=== PATIENT | male | born 1945 | race African-American/Black ===

== ENCOUNTER 2020-01-01 23:51 | Inpatient (IN) | payer MEDICAID, OTHER ==
[~2020-01-01] VITALS: Ht 176.5 cm; Wt 52.2 kg
[2020-01-01 23:51] VITALS: BP 202/93
--- NOTE | 2020-01-01 23:51 | NUR ---
ED Nurse Note: pt presents to ED via EMS arrival RA 70 c/o SOB x 2 days. EMS report that pt was sattinga at 87% on RA, they gave him a breathing treatment, did not help. EMS put him on c-pap and gave him a breathing treatment, he is now satting at 100%. patient placed on gurney. ao4. vss. changed into gown; attached to monitor. safety measures met. rt at bedside.
[2020-01-02] VITALS (7 sets, daily range): BP systolic 154–192; BP diastolic 71–100
[2020-01-02] MEDS ORDERED: Solu-MEDROL 125mg Inj IVP ONE
--- NOTE | 2020-01-02 00:01 | Emergency Room Report ---
History of Present Illness General Chief Complaint: Dyspnea/Respdistress Source: Patient, EMS Present Illness HPI 74-year-old male past history of COPD history of lung cancer presents with shortness of breath, respiratory distress x2 days patient has been taking albuterol which has helped a little bit, no known aggravating factors severity is severe, constant patient was on BiPAP brought in by EMS patient presents for evaluation Allergies: Coded Allergies: No Known Allergies (Unverified , 01/01/20) Patient History Past Medical History: see triage record Social History: Reports: smoking Reviewed Nursing Documentation: PMH: Agreed; PSxH: Agreed Nursing Documentation-PMH Hx Asthma: Yes Hx COPD: Yes Review of Systems All Other Systems: negative except mentioned in HPI Physical Exam Vital Signs Date Time Temp Pulse Resp B/P (MAP) Pulse Ox O2 Delivery O2 Flow Rate FiO2 01/01/20 23:48 97.3 112 20 202/93 (129) 100 Sp02 EP Interpretation: reviewed, normal General Appearance: alert, moderate distress Head: normocephalic, atraumatic Eyes: bilateral eye PERRL, bilateral eye EOMI ENT: uvula midline, moist mucus membranes Neck: supple, thyroid normal, supple/symm/no masses Respiratory: decreased breath sounds, accessory muscle use, rhonchi, wheezing Cardiovascular #1: normal peripheral pulses, no edema, no gallop, no murmur, tachycardia Gastrointestinal: non tender, soft, no guarding, no rebound Musculoskeletal: normal inspection Neurologic: alert, oriented x3 Psychiatric: anxious Skin: no rash, warm/dry Procedures Critical Care Time Critical Care Time Given the critical condition in which the patient arrived, the patient was immediately assessed by myself and the nurse, and cardiac monitoring initiated due to the potential for rapid decompensation of the patient's clinical condition. During the course of the patient's stay, I spent a considerable amount of time at the bedside performing serial re-evaluations of the patient's hemodynamic and clinical status because of the recognized potential threat to life or limb in this condition. I then had a chance to review not only all of the available current laboratory and radiographic studies obtained today, but I also reviewed old records available to me at the time. Additionally, any ancillary information available including agricultural research engineer records were reviewed. Sequential vital signs were obtained. Critical Care time of 36 minutes was performed exclusive of billable procedures. Medical Decision Making Diagnostic Impression: Primary Impression: Respiratory distress Additional Impression: COPD with exacerbation ER Course 74-year-old male presents with acute shortness of breath differential diagnosis includes COPD exacerbation, pneumonia We will start steroids, antibiotics, fluids BiPAP started due to patient being in extremitas Reevaluation 12:45 AM patient is feeling better tachycardia is resolving patient was also given antibiotics for possible healthcare acquired pneumonia Patient to be admitted to stepdown unit Reevaluation 12:57 AM attempted to move patient off BiPAP however patient could not tolerate will restart BiPAP Patient admitted to [facility] Laboratory Tests Test 01/02/20 00:05 01/02/20 00:10 Arterial Blood pH 7.347 (7.350-7.450) Arterial Blood Partial Pressure CO2 41.5 mmHg (35.0-45.0) Arterial Blood Partial Pressure O2 172.4 mmHg (75.0-100.0) H Arterial Blood HCO3 22.2 mmol/L (22.0-26.0) Arterial Blood Oxygen Saturation 98.8 % (95-100) Arterial Blood Base Excess -3.2 (-2-2) L Angel Test Positive White Blood Count 10.5 K/UL (4.8-10.8) Red Blood Count 5.11 M/UL (4.70-6.10) Hemoglobin 14.1 G/DL (14.2-18.0) L Hematocrit 42.9 % (42.0-52.0) Mean Corpuscular Volume 84 FL (80-99) Mean Corpuscular Hemoglobin 27.5 PG (27.0-31.0) Mean Corpuscular Hemoglobin Concent 32.8 G/DL (32.0-36.0) Red Cell Distribution Width 12.7 % (11.6-14.8) Platelet Count 300 K/UL (150-450) Mean Platelet Volume 5.7 FL (6.5-10.1) L Neutrophils (%) (Auto) 55.8 % (45.0-75.0) Lymphocytes (%) (Auto) 28.0 % (20.0-45.0) Monocytes (%) (Auto) 5.8 % (1.0-10.0) Eosinophils (%) (Auto) 9.4 % (0.0-3.0) H Basophils (%) (Auto) 1.0 % (0.0-2.0) Lactic Acid Level 1.30 mmol/L (0.4-2.0) Troponin I 0.000 ng/mL (0.000-0.056) Pro-B-Type Natriuretic Peptide 238 pg/mL (0-125) H Lipase 152 U/L (73-393) EKG Diagnostic Results EKG Time: 00:06 EP Interpretation: Sinus tachycardia, rate 105, QTc 436, no acute ST elevations , right axis de Rhythm Strip Diag. Results Rhythm Strip Time: 00:44 EP Interpretation: yes Rate: 92 Rhythm: NSR, no PVC's, no ectopy Chest X-Ray Diagnostic Results Chest X-Ray Diagnostic Results : Chest X-Ray Ordered: Yes # of Views/Limited/Complete: 1 View Indication: Chest Pain EP Interpretation: Yes Interpretation: no consolidation, no effusion, no pneumothorax, no acute cardiopulmonary disease Impression: No acute disease Electronically Signed by: Juma Chandler MD Last Vital Signs Date Time Temp Pulse Resp B/P (MAP) Pulse Ox O2 Delivery O2 Flow Rate FiO2 01/01/20 23:48 97.3 112 20 202/93 (129) 100 Disposition: ADMITTED INPATIENT Condition: Critical Juma Chandler MD Jan 02, 2020 00:01
--- NOTE | 2020-01-02 00:10 | NUR ---
ED Nurse Note: iv access established. blood collected; sent down to lab.
[2020-01-02] MEDS ORDERED: Vancomycin 1 GM in NS 275 ML IVPB ONE (00:15)
[2020-01-02] MEDS ORDERED: Cefepime HCl 2 GM in D5W 55 ML IVPB ONE (00:15)
[2020-01-02 00:44] LABS: EOSINOPHILS % (AUTO) 9.4 % (0.0-3.0); HEMATOCRIT 42.9 % (42.0-52.0); HEMOGLOBIN 14.1 G/DL (14.2-18.0); MEAN CORPUSCULAR VOLUME 84 FL (80-99); MONOCYTES % (AUTO) 5.8 % (1.0-10.0); NEUTROPHILS % (AUTO) 55.8 % (45.0-75.0); PLATELET COUNT 300 K/UL (150-450); RED BLOOD COUNT 5.11 M/UL (4.70-6.10); RED CELL DISTRIBUTION WIDTH 12.7 % (11.6-14.8); WHITE BLOOD COUNT 10.5 K/UL (4.8-10.8)
[2020-01-02] MEDS ORDERED: Mylanta II UD 30ml ORAL PRN (01:30)
[2020-01-02] MEDS ORDERED: Albuterol/Ipratropium 3ml neb HHN PRN (01:30)
[2020-01-02] MEDS ORDERED: DiphenhydrAMINE 25mg Tab ORAL PRN (01:30)
[2020-01-02] MEDS ORDERED: LORazepam Inj 2mg/ml 1ml IV PRN (01:30)
--- NOTE | 2020-01-02 02:08 | NUR ---
TRANSFER TO FLOOR: Patient transferred to sdu 238-2 as ordered, per albertina viramontes. Report given to isac mendoza. patient stable for transfer. pt tranferred to unit via [facility] with alice chau and rt. belongings and admission packet sent with patient.
--- NOTE | 2020-01-02 02:15 | NUR ---
NURSE NOTES: Received pt from Yolanda Beltran RN of ED. pt transferred via gurney. pt is AO X4, able to make needs known. denies pain at this time. pt placed on BiPAP with settings of 12/6, FiO2: 21%. at this time, pt is exhibiting labored breathing, saturation: 96%. pt placed on vacuum cleaner repairer. vacuum cleaner repairer shows HR between 90s-low 100s. no acute cardiac distress noted. skin assessed and noted to be intact upon assessment. RFA 20 g IV site is patent and intact, asymptomatic. Right upper chest port-a-cath noted. diminished breath sounds and wheezes noted bilaterally upon auscultation. hypoactive bowel sounds heard upon auscultation X4 quadrants. urinal placed at bedside. belongings reviewed with patient, remain at bedside. bed in lowest position and locked, siderails up X3, call light within reach. will continue to monitor.
--- NOTE | 2020-01-02 03:44 | NUR ---
NURSE NOTES: left message for Dr. Ely regarding clarification of BiPAP order, regarding pt's SBP between 160-180, and pt's desire to be DNR/DNI. awaiting call back. pt is in stable condition at this time. pt appears to be tolerating current BiPAP settings well. will continue to monitor.
--- NOTE | 2020-01-02 03:50 | NUR ---
NURSE NOTES: received call back from Dr. Ely. will carry out new orders.
[2020-01-02] MEDS: Solu-MEDROL 40mg Inj IVP SCH ×4 (05:35→23:09)
--- NOTE | 2020-01-02 07:35 | NUR ---
NURSE NOTES: Received report from Eric Jaramillo RN. Patient eating breakfast in bed, oriented x 4, able to make needs known and follow commands. On room air, no s/s of respiratory distress noted. Right forearm 20g IV site patent and asymptomatic. Noted with right upper chest port-a-cath. Bed locked in lowest position with side rails up x 3. All needs attended to. Call light within reach. Will continue to monitor.
--- NOTE | 2020-01-02 07:52 | NUR ---
HAND-OFF: Report given to KRISTEN Healy. pt is in stable condition.
--- NOTE | 2020-01-02 08:40 | NUR ---
NURSE NOTES: Dr. Raisa Pulliam at bedside, made aware of patient's desire for code to be DNR/DNI. Also notified MD of elevated BP, no BP medications available.
[2020-01-02] MEDS: Docusate 100mg cap ORAL SCH ×2 (09:00→20:32)
[2020-01-02] MEDS: Azithromycin 250mg tab ORAL SCH (09:08)
[2020-01-02] MEDS: Heparin 5000 units/ml inj SUBQ SCH ×2 (09:09→20:34)
--- NOTE | 2020-01-02 09:52 | Consultation ---
History of Present Illness General Date patient seen: Jan 02, 2020 Time patient seen: 09:45 Chief Complaint: Dyspnea/Respdistress Referring physician: Dr. Ely Reason for Consultation: COPD exacerbation Present Illness HPI 74 y/o male w/ hx asthma w/ COPD, lung cancer on immunotherapy (unkown stage, possibly stage I with nonsurgical candidacy), head/neck cancer s/p resection, ? small intestinal cancer s/p resection, previous hx heavy tobacco use with one day of shortness of breath and wheezing. Chronic cough but a little worse. States this happens frequently. No fever, chills, rhinorrhea, body aches. Using his inhalers. NO longer smoking. Given abx in ED along with steroids and also placed on BiPAP with ABG showing a mild metabolic acidosis. Feels better after using BiPAP, currently tolerating room air. Allergies: Coded Allergies: No Known Allergies (Unverified , 01/01/20) Medication History Unable to Obtain Active Prescriptions or Reported Meds Patient History History Provided By: Patient, Medical Record Healthcare decision maker SELF Resuscitation status Full Code Advanced Directive on File No Review of Systems Constitutional: Reports: no symptoms Eye: Reports: no symptoms ENT: Reports: no symptoms Respiratory: Reports: cough, shortness of breath, wheezing Cardiovascular: Reports: no symptoms Gastrointestinal: Reports: no symptoms Genitourinary: Reports: no symptoms Musculoskeletal: Reports: no symptoms Psychiatric: Reports: no symptoms Neurological: Reports: no symptoms Endocrine: Reports: no symptoms Hematologic/Lymphatic: Reports: no symptoms Physical Exam General Appearance: WD/WN, no apparent distress HEENT: pharynx normal, no JVD Neck: non-tender, normal alignment, supple, normal inspection Respiratory/Chest: expiratory wheezing Cardiovascular/Chest: normal rate, regular rhythm Abdomen: normal bowel sounds, non tender, soft Extremities: no edema Neurologic: ship pilot dispatcher II-XII grossly normal Last 24 Hour Vital Signs Date Time Temp Pulse Resp B/P (MAP) Pulse Ox O2 Delivery O2 Flow Rate FiO2 01/02/20 09:11 169/83 01/02/20 09:04 98 01/02/20 08:00 98.2 107 19 171/81 (111) 97 01/02/20 06:51 90 19 99 21 01/02/20 05:12 91 17 99 21 01/02/20 04:32 166/83 01/02/20 04:00 Bi-pap 01/02/20 04:00 97.5 91 21 162/81 (108) 98 01/02/20 04:00 92 01/02/20 04:00 21 01/02/20 03:53 89 21 97 Bi-Pap 21 01/02/20 03:30 89 21 98 21 01/02/20 03:08 21 01/02/20 02:22 Bi-Pap 01/02/20 02:15 97.7 92 24 154/76 (102) 96 01/02/20 02:12 98 01/02/20 01:50 97.3 94 24 167/100 99 Bi-pap 21 01/02/20 01:30 97.3 94 24 167/100 99 Bi-pap 21 01/02/20 01:09 91 24 99 21 01/02/20 00:14 90 38 95 40 01/01/20 23:51 97.3 105 20 100 Bi-pap 01/01/20 23:51 112 20 Bi-pap 01/01/20 23:48 97.3 112 20 (129) 100 Intake and Output 01/01/20 01/02/20 18:59 06:59 Output Total 550 ml Balance -550 ml Output Urine Total 550 ml Laboratory Tests Test 01/02/20 00:05 01/02/20 00:10 Arterial Blood pH 7.347 (7.350-7.450) Arterial Blood Partial Pressure CO2 41.5 mmHg (35.0-45.0) Arterial Blood Partial Pressure O2 172.4 mmHg (75.0-100.0) H Arterial Blood HCO3 22.2 mmol/L (22.0-26.0) Arterial Blood Oxygen Saturation 98.8 % (95-100) Arterial Blood Base Excess -3.2 (-2-2) L Angel Test Positive White Blood Count 10.5 K/UL (4.8-10.8) Red Blood Count 5.11 M/UL (4.70-6.10) Hemoglobin 14.1 G/DL (14.2-18.0) L Hematocrit 42.9 % (42.0-52.0) Mean Corpuscular Volume 84 FL (80-99) Mean Corpuscular Hemoglobin 27.5 PG (27.0-31.0) Mean Corpuscular Hemoglobin Concent 32.8 G/DL (32.0-36.0) Red Cell Distribution Width 12.7 % (11.6-14.8) Platelet Count 300 K/UL (150-450) Mean Platelet Volume 5.7 FL (6.5-10.1) L Neutrophils (%) (Auto) 55.8 % (45.0-75.0) Lymphocytes (%) (Auto) 28.0 % (20.0-45.0) Monocytes (%) (Auto) 5.8 % (1.0-10.0) Eosinophils (%) (Auto) 9.4 % (0.0-3.0) H Basophils (%) (Auto) 1.0 % (0.0-2.0) Lactic Acid Level 1.30 mmol/L (0.4-2.0) Troponin I 0.000 ng/mL (0.000-0.056) Pro-B-Type Natriuretic Peptide 238 pg/mL (0-125) H Lipase 152 U/L (73-393) Microbiology Date/Time Source Procedure Growth Status 01/02/20 03:00 Nasal Nares - Final Complete 01/02/20 03:00 Nasal Nares - Final Complete Height (Feet): 5 Height (Inches): 9.50 Weight (Pounds): 119 Medications Current Medications Medications (Trade) Dose Ordered Sig/Tyron Route PRN Reason Start Time Stop Time Status Last Admin Dose Admin Acetaminophen (Tylenol) 650 mg Q4H PRN ORAL Mild Pain (Pain Scale 1-3) 01/02/20 01:30 02/01/20 01:29 Al Hydroxide/Mg Hydroxide (Mylanta II) 30 ml Q6H PRN ORAL dyspepsia 01/02/20 01:30 02/01/20 01:29 Albuterol/ Ipratropium (Albuterol/ Ipratropium) 3 ml Q4H PRN HHN Shortness of Breath 01/02/20 01:30 01/07/20 01:29 Azithromycin (Zithromax) 250 mg DAILY ORAL 01/02/20 09:00 01/09/20 08:59 01/02/20 09:08 Chlorhexidine Gluconate (Mackenzie-Hex 2%) 1 applic DAILY@1999 TOPIC 01/02/20 20:00 02/01/20 19:59 Dextrose (Dextrose 50%) 25 ml Q30M PRN IV Hypoglycemia 01/02/20 01:30 02/01/20 01:29 Dextrose (Dextrose 50%) 50 ml Q30M PRN IV Hypoglycemia 01/02/20 01:30 02/01/20 01:29 Diphenhydramine HCl (Benadryl) 25 mg Q6H PRN ORAL Itching/Pruritis 01/02/20 01:30 02/01/20 01:29 Docusate Sodium (Colace) 100 mg EVERY 12 HOURS ORAL 01/02/20 09:00 02/01/20 08:59 Heparin Sodium (Porcine) (Heparin 5000 units/ml) 5,000 units EVERY 12 HOURS SUBQ 01/02/20 09:00 02/01/20 08:59 01/02/20 09:09 Hydralazine HCl (Apresoline) 10 mg Q4H PRN IV For High Blood Pressure 01/02/20 08:45 02/01/20 08:44 01/02/20 09:11 Lorazepam (Ativan 2mg/ml 1ml) 0.5 mg Q4H PRN IV For Anxiety 01/02/20 01:30 01/09/20 01:29 Methylprednisolone Sodium Succinate (Solu-MEDROL) 40 mg EVERY 6 HOURS IVP 01/02/20 06:00 02/01/20 05:59 01/02/20 05:35 Ondansetron HCl (Zofran) 4 mg Q6H PRN IVP Nausea & Vomiting 01/02/20 01:30 02/01/20 01:29 Pantoprazole (Protonix) 40 mg DAILY ORAL 01/02/20 09:00 02/01/20 08:59 01/02/20 09:08 Assessment/Plan Assessment/Plan: Problem List: * Acute exacerbation of asthma w/ COPD * Query viral etiology * Lung cancer on immunotherapy, unclear stage * hx ENT cancer * 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
--- NOTE | 2020-01-02 10:09 | NUR ---
RD ASSESSMENT & RECOMMENDATIONS SEE CARE ACTIVITY FOR COMPLETE ASSESSMENT DAILY ESTIMATED NEEDS: Needs based on underweight, cancer 54kg 30-40 kcals/kg 2428-8909 total kcals 1-2 g protein/kg 54-108 g total protein 25-30 mL/kg 8765-5169 total fluid mLs NUTRITION DIAGNOSIS: Increased kcal and pro needs r/t cancer and underweight status as evidenced by pt w/ lung cancer s/p chemo, pt is 72% of [place] Body Weight w/ generalized moderate to severe wasting. CURRENT DIET: Regular PO DIET RECOMMENDATIONS: Maintain Regular diet / add snacks in b/w all meals ADDITIONAL RECOMMENDATIONS: 1) rec CHEM panel to evaluate lytes, renal labs, BG etc.... 2) Snacks in b/w all meals -> High kcal supplement when chem panel is available 3) Obtain a standing weight / pt reports wt loss, currently underweight
--- NOTE | 2020-01-02 12:13 | Diagnostic Imaging Report ---
Indication: Dyspnea Comparison: 11/27/2010 A single view chest radiograph was obtained. Findings: There is a right chest port in good position. Ill-defined infiltrate right upper lobe noted. Abnormal density in the suprahilar region could be a mass. Correlate with the given workup and previous studies if available. Elevated right hemidiaphragm noted. Heart size is normal. IMPRESSION: Chest port in good position. Right upper lobe infiltrate versus mass.
--- NOTE | 2020-01-02 12:33 | NUR ---
NURSE NOTES: Dr. Pulliam notified of patient's elevated BP. Per patient, he takes nifedipine at home 60 mg q AM and 30 mg q HS. Order received to add nifedipine to inpatient meds.
--- NOTE | 2020-01-02 13:21 | History and Physical ---
History of Present Illness General Date patient seen: Jan 02, 2020 Time patient seen: 11:00 Reason for Hospitalization: Dyspnea/Respdistress Present Illness HPI 74 y/o male w/ hx asthma w/ COPD, lung cancer on immunotherapy (unkown stage, possibly stage I with nonsurgical candidacy), presenting with 1 day of SOB, wheezing. He reports having frequent episodes like this once (4th since last August). Has been coughing but it's chronic. denies any fever, chills, sick contacts. Allergies: Coded Allergies: No Known Allergies (Unverified , 01/01/20) Medication History Unable to Obtain Active Prescriptions or Reported Meds Patient History Healthcare decision maker SELF Resuscitation status Full Code Advanced Directive on File No Review of Systems Constitutional: Denies: no symptoms, see HPI, chills, sweats, fever, malaise, weakness, other Eye: Denies: no symptoms, see HPI, eye pain, blurred vision, tearing, double vision, nose pain, nose congestion, acuity changes, discharge, other ENT: Denies: no symptoms, see HPI, ear pain, ear discharge, nose pain, nose congestion, throat pain, throat swelling, mouth pain, hearing loss, nasal discharge, other Respiratory: Reports: cough, shortness of breath, wheezing Cardiovascular: Denies: no symptoms, see HPI, chest pain, edema, palpitations, syncope, PND, other Gastrointestinal: Denies: no symptoms, see HPI, abdominal pain, constipation, diarrhea, nausea, vomiting, melena, hematemesis, other Genitourinary: Denies: no symptoms, see HPI, discharge, dysuria, frequency, hematuria, pain, retention, incontinence, urgency, vag bleed/dc, other Musculoskeletal: Denies: no symptoms, see HPI, back pain, gout, joint pain, joint swelling, muscle pain, muscle stiffness, other Skin: Denies: no symptoms, see HPI, rash, change in color, change in hair/nails , dryness, lesions, other Psychiatric: Denies: no symptoms, see HPI, prior hx, anxiety, depressed feelings, emotional problems, SI, HI, hallucinations, other Neurological: Denies: no symptoms, see HPI, headache, numbness, paresthesia, seizure, tingling, tremors, focal weakness, syncope, dizziness, other Endocrine: Denies: no symptoms, see HPI, excessive sweating, flushing, intolerance to temperature, increased thirst, increased urine, unexplained weight loss, other All Other Systems: negative except mentioned in HPI Physical Exam General Appearance: no apparent distress, alert HEENT: normocephalic, atraumatic Neck: supple Respiratory/Chest: no respiratory distress, expiratory wheezing, inspiratory wheezing Cardiovascular/Chest: normal rate, regular rhythm Abdomen: non tender, soft Extremities: no edema Neurologic: alert, oriented x 3 Last 24 Hour Vital Signs Date Time Temp Pulse Resp B/P (MAP) Pulse Ox O2 Delivery O2 Flow Rate FiO2 01/02/20 12:38 96 184/91 01/02/20 12:00 98.6 101 20 192/83 (119) 99 01/02/20 12:00 Room Air 01/02/20 09:11 169/83 01/02/20 09:04 98 01/02/20 08:00 Room Air 01/02/20 08:00 98.2 107 19 171/81 (111) 97 01/02/20 07:46 109 01/02/20 06:51 90 19 99 21 01/02/20 05:12 91 17 99 21 01/02/20 04:32 166/83 01/02/20 04:00 Bi-pap 01/02/20 04:00 97.5 91 21 162/81 (108) 98 01/02/20 04:00 92 01/02/20 04:00 21 01/02/20 03:53 89 21 97 Bi-Pap 21 01/02/20 03:30 89 21 98 21 01/02/20 03:08 21 01/02/20 02:22 Bi-Pap 01/02/20 02:15 97.7 92 24 154/76 (102) 96 01/02/20 02:12 98 01/02/20 01:50 97.3 94 24 167/100 99 Bi-pap 21 01/02/20 01:30 97.3 94 24 167/100 99 Bi-pap 21 01/02/20 01:09 91 24 99 21 01/02/20 00:14 90 38 95 40 01/01/20 23:51 97.3 105 20 100 Bi-pap 01/01/20 23:51 112 20 Bi-pap 01/01/20 23:48 97.3 112 20 202/93 (129) 100 Intake and Output 01/01/20 01/02/20 19:00 07:00 Output Total 550 ml Balance -550 ml Output Urine Total 550 ml Laboratory Tests Test 01/02/20 00:05 01/02/20 00:10 Arterial Blood pH 7.347 (7.350-7.450) Arterial Blood Partial Pressure CO2 41.5 mmHg (35.0-45.0) Arterial Blood Partial Pressure O2 172.4 mmHg (75.0-100.0) H Arterial Blood HCO3 22.2 mmol/L (22.0-26.0) Arterial Blood Oxygen Saturation 98.8 % (95-100) Arterial Blood Base Excess -3.2 (-2-2) L Angel Test Positive White Blood Count 10.5 K/UL (4.8-10.8) Red Blood Count 5.11 M/UL (4.70-6.10) Hemoglobin 14.1 G/DL (14.2-18.0) L Hematocrit 42.9 % (42.0-52.0) Mean Corpuscular Volume 84 FL (80-99) Mean Corpuscular Hemoglobin 27.5 PG (27.0-31.0) Mean Corpuscular Hemoglobin Concent 32.8 G/DL (32.0-36.0) Red Cell Distribution Width 12.7 % (11.6-14.8) Platelet Count 300 K/UL (150-450) Mean Platelet Volume 5.7 FL (6.5-10.1) L Neutrophils (%) (Auto) 55.8 % (45.0-75.0) Lymphocytes (%) (Auto) 28.0 % (20.0-45.0) Monocytes (%) (Auto) 5.8 % (1.0-10.0) Eosinophils (%) (Auto) 9.4 % (0.0-3.0) H Basophils (%) (Auto) 1.0 % (0.0-2.0) Lactic Acid Level 1.30 mmol/L (0.4-2.0) Troponin I 0.000 ng/mL (0.000-0.056) Pro-B-Type Natriuretic Peptide 238 pg/mL (0-125) H Lipase 152 U/L (73-393) Microbiology Date/Time Source Procedure Growth Status 01/02/20 03:00 Nasal Nares - Final Complete 01/02/20 03:00 Nasal Nares - Final Complete Height (Feet): 5 Height (Inches): 9.50 Weight (Pounds): 119 Medications Current Medications Medications (Trade) Dose Ordered Sig/Tyron Route PRN Reason Start Time Stop Time Status Last Admin Dose Admin Acetaminophen (Tylenol) 650 mg Q4H PRN ORAL Mild Pain (Pain Scale 1-3) 01/02/20 01:30 02/01/20 01:29 Al Hydroxide/Mg Hydroxide (Mylanta II) 30 ml Q6H PRN ORAL dyspepsia 01/02/20 01:30 02/01/20 01:29 Albuterol/ Ipratropium (Albuterol/ Ipratropium) 3 ml Q4H PRN HHN Shortness of Breath 01/02/20 01:30 01/07/20 01:29 Azithromycin (Zithromax) 250 mg DAILY ORAL 01/02/20 09:00 01/09/20 08:59 01/02/20 09:08 Chlorhexidine Gluconate (Mackenzie-Hex 2%) 1 applic DAILY@1999 TOPIC 01/02/20 20:00 02/01/20 19:59 Dextrose (Dextrose 50%) 25 ml Q30M PRN IV Hypoglycemia 01/02/20 01:30 02/01/20 01:29 Dextrose (Dextrose 50%) 50 ml Q30M PRN IV Hypoglycemia 01/02/20 01:30 02/01/20 01:29 Diphenhydramine HCl (Benadryl) 25 mg Q6H PRN ORAL Itching/Pruritis 01/02/20 01:30 02/01/20 01:29 Docusate Sodium (Colace) 100 mg EVERY 12 HOURS ORAL 01/02/20 09:00 02/01/20 08:59 Heparin Sodium (Porcine) (Heparin 5000 units/ml) 5,000 units EVERY 12 HOURS SUBQ 01/02/20 09:00 02/01/20 08:59 01/02/20 09:09 Hydralazine HCl (Apresoline) 10 mg Q4H PRN IV For High Blood Pressure 01/02/20 08:45 02/01/20 08:44 01/02/20 09:11 Lorazepam (Ativan 2mg/ml 1ml) 0.5 mg Q4H PRN IV For Anxiety 01/02/20 01:30 01/09/20 01:29 Methylprednisolone Sodium Succinate (Solu-MEDROL) 40 mg EVERY 6 HOURS IVP 01/02/20 06:00 02/01/20 05:59 01/02/20 12:19 Nifedipine (Procardia XL) 30 mg QHS ORAL 01/02/20 21:00 02/01/20 20:59 Nifedipine (Procardia XL) 60 mg DAILY ORAL 01/02/20 13:00 02/01/20 12:59 01/02/20 12:38 Ondansetron HCl (Zofran) 4 mg Q6H PRN IVP Nausea & Vomiting 01/02/20 01:30 02/01/20 01:29 Pantoprazole (Protonix) 40 mg DAILY ORAL 01/02/20 09:00 02/01/20 08:59 01/02/20 09:08 Assessment/Plan Problem List: (1) Respiratory distress ICD Codes: R06.03 - Acute respiratory distress SNOMED: 779472002 (2) COPD with exacerbation ICD Codes: J44.1 - Chronic obstructive pulmonary disease with (acute) exacerbation SNOMED: 029237503 Status: doing well, stable Assessment/Plan: 74 y/o male w/ hx asthma w/ COPD, lung cancer on immunotherapy (unkown stage, possibly stage I with nonsurgical candidacy), presenting with 1 day of SOB, wheezing, likely COPD/asthma exacerbation. #COPD/asthma exacerbation #Cough #Wheezing #Hx of lung cancer on immunotherapy. -Admit to inpatient. -no abx indicated. -Solumedrol 40 mg q6h (12/31 -) -Duonebs. -Pulm consult appreciated. -Check CT chest. -BiPAP prn -ABG in AM #GERD -Continue PPI. #DNAR status -confirmed with patient. 36 mins spent on chart review of pertinent medical information. Time of note doesn't reflect time of encounter. Raisa Pulliam M.D. Jan 02, 2020 13:21
--- NOTE | 2020-01-02 15:26 | NUR ---
NURSE NOTES: Notified Dr. Pulliam of BP 175/78. Received order for amlodipine 10 mg PO q day starting today.
--- NOTE | 2020-01-02 17:45 | NUR ---
NURSE NOTES: Patient's BP still uncontrolled. BP currently 172/77. Received order to give hydralazine 10 mg x 1, change current PRN hydralazine order to 20 mg and to call for SBP > 175.
--- NOTE | 2020-01-02 19:13 | NUR ---
HAND-OFF: Report given to Charu Anglin RN. Patient in stable condition, current BP 145/64
[2020-01-02] MEDS ORDERED: Dyna-Hex 2% Top Sol 2oz TOPIC SCH (20:00)
--- NOTE | 2020-01-02 20:00 | NUR ---
NURSE NOTES: Report received from KRISTEN Healy. Observed pt watching tv, no distress noted at this time. Denies any pain at this time. A/O x4. ST with HR of 105. On Room air with no sob. Abd soft, non-tender. IV on R FA 20G, SL, asymptomatic. R Upper chest portacath. noted. Bed in the lowest position and locked. Side rails up x2. Will continue to monitor.
[2020-01-03] VITALS: BP 138/70
--- NOTE | 2020-01-03 02:00 | NUR ---
NURSE NOTES: Received report from Linnette Wilde RN. Patient sleeping in bed, easily awakened. Oriented x 4 Able to make needs known and follow commands. On room air. No distress noted. Right forearm 20g IV site patent and asymptomatic. Noted with right upper chest port-a-cath. SR on desk monitor at present moment. Bed locked in lowest position with side rails up x 3. Bed alarm engaged. Call light within reach. Will continue POC.
--- NOTE | 2020-01-03 02:05 | NUR ---
HAND-OFF: Report given to KRISTEN Romeo. Pt sleeping in the bed, calm and comfortable. No acute distress noted at this time.
[2020-01-03 03:41] VITALS: BP 137/63
[2020-01-03 04:52] LABS: HEMATOCRIT 35.5 % (42.0-52.0); HEMOGLOBIN 11.4 G/DL (14.2-18.0); MEAN CORPUSCULAR VOLUME 84 FL (80-99); PLATELET COUNT 267 K/UL (150-450); RED BLOOD COUNT 4.22 M/UL (4.70-6.10); RED CELL DISTRIBUTION WIDTH 12.9 % (11.6-14.8); WHITE BLOOD COUNT 10.9 K/UL (4.8-10.8)
[2020-01-03 05:06] LABS: ANION GAP 12 mmol/L (5-15); BLOOD UREA NITROGEN 46 mg/dL (7-18); CALCIUM 9.1 MG/DL (8.5-10.1); CARBON DIOXIDE 21 MMOL/L (21-32); CHLORIDE 106 MMOL/L (98-107); CREATININE 1.9 MG/DL (0.55-1.30); SODIUM 139 MMOL/L (136-145)
[2020-01-03] MEDS: Solu-MEDROL 40mg Inj IVP SCH ×2 (06:20→12:25)
--- NOTE | 2020-01-03 07:00 | NUR ---
HAND-OFF: Report given to KRISTEN Mendes.
--- NOTE | 2020-01-03 07:50 | NUR ---
NURSE NOTES: received pt in the bed, awake, alert, oriented, ambulatory, vital signs stable, no co pain, respiration regular, skin warm and dry to touch, intact, tolerate diet well, bed in low position, call light within reach.
[2020-01-03 08:00] VITALS: BP 127/60
[2020-01-03] MEDS: Azithromycin 250mg tab ORAL SCH (08:32)
[2020-01-03] MEDS: Heparin 5000 units/ml inj SUBQ SCH (08:36)
[2020-01-03] MEDS: Docusate 100mg cap ORAL SCH (08:43)
[2020-01-03 12:00] VITALS: BP 132/62
[2020-01-03] MEDS ORDERED: PREDNISONE20 MG ORAL (13:09)
[2020-01-03] MEDS ORDERED: NORVASC10 MG ORAL (13:09)
[2020-01-03] MEDS ORDERED: PROCARDIA XL30 MG ORAL ×2 (13:09)
--- NOTE | 2020-01-03 13:11 | Discharge Summary ---
Discharge Summary Hospital Course Date of Admission Jan 02, 2020 at 00:35 Date of Discharge Admitting Diagnosis copd exacerbation HPI Fermín Quintero is a 74 year old male who was admitted on Jan 02, 2020 at 00: 35 for Chronic Obstructive Pulmunary Disease Exacerbation Consultations pulmonology Hospital Course 74 y/o male w/ hx asthma w/ COPD, lung cancer on immunotherapy (unkown stage, possibly stage I with nonsurgical candidacy), presenting with 1 day of SOB, wheezing, likely COPD/asthma exacerbation. Was started on steroids with significant improvement. also evaluated by pulmnology. Patient is being d/c'ed home today in good condition with 4 more days of prednisone 40 mg daily. Discharge Condition Upon Discharge: stable Discharge Vital Signs Last Vital Signs Date Time Temp Pulse Resp B/P (MAP) Pulse Ox O2 Delivery O2 Flow Rate FiO2 01/03/20 12:00 97.9 91 22 132/62 (85) 97 01/03/20 12:00 Room Air 01/02/20 06:51 21 Discharge Disposition Patient was discharged to home Discharge Diagnoses: (1) Respiratory distress (2) COPD with exacerbation Raisa Pulliam M.D. Jan 03, 2020 13:11
--- NOTE | 2020-01-03 13:14 | Diagnostic Imaging Report ---
Indication: Chest pain Technique: Continuous helical transaxial imaging of the chest was obtained from the thoracic inlet to the upper abdomen. No intravenous contrast was administered. Coronal 2-D reformats were also obtained. Total Dose length Product (DLP): 126.[address] Dose Index Volume (CTDIvol): 3 mGy Comparison: none Findings: There is an abnormal density with calcification and ill-defined margins in the right paramediastinal region just above the right hilum. The abnormal density is partially calcified and is partly accounted for by the upper lobe branch of the right pulmonary artery. On axial images the density has a measurement of about 2.5 x 2.1 cm and could represent a nodular area of scarring as there is some retraction of the hilum superiorly and some ill-defined streaky densities emanating from the density into the anterior and anterolateral part of the right lung apex. Although scarring is in the differential diagnosis, the possibility of underlying mass is not excluded. Evaluation is limited given the nonadministration of contrast material which would be very helpful in this instance. A more linear, smaller focus of nodular density in the left anteromedial lung is likely scarring. Emphysema is demonstrated with generalized hyperlucency of the lungs as well as ill-defined lucencies throughout both upper and lower lung morales. There is a focus of scarring or atelectasis in the posterior right lung base. This is seen as an area of coarse mostly linear appearing densities. There is volume loss on the right which is better appreciated on chest x-ray and coronal reconstructions with elevation of the right hemidiaphragm. A right jugular catheter is present. The tip is seen at the junction of the SVC and right atrium. There is severe calcification of aorta and severe calcification of multiple arterial structures including the branches of the aortic arch. The visualized part of the upper abdomen demonstrates cholecystectomy clips and a moderately distended stomach. There are both punctate and slightly linear appearing densities in the central part of both kidneys. This is only partially seen on the current study and they may represent vascular calcifications within branches of the renal artery. Small nonobstructive stones cannot be excluded. Moderate stool demonstrated in the colon. The most caudal images of the upper abdomen show a slight swirl-like appearance of the mesenteric fat on the right side of abdomen. Internal hernia not excluded. This is not evaluated adequately. IMPRESSION: 2.5 x 2.1 cm nodular right paramediastinal focus. This may be area of nodular scarring. Tumor is not excluded. Repeat examination with contrast administration is recommended. Nodular scarring in the left upper lobe also noted. COPD/emphysema. Partially image stool-like appearance of the mesentery in the right abdomen. Internal hernia not excluded. Status post cholecystectomy. Severe atherosclerotic vascular disease. Linear scarring versus atelectasis at the right lung base Other incidental findings as above The CT scanner at [facility] is accredited by the [employer] and the scans are performed using dose optimization techniques as appropriate to a performed exam including Automatic Exposure control.
--- NOTE | 2020-01-03 13:44 | NUR ---
*-* INSURANCE *-* ALL AVAILABLE CLINICALS HAVE BEEN FACED TO: LATOYA P:[phone] F: [phone] (FAX CLINICALS HERE AND TO [facility] [phone]) & [employer] NET FAX CLINICALS TO [phone]
--- NOTE | 2020-01-03 16:06 | NUR ---
CLOCKMAKER APPRENTICECREDIT VERIFICATION CLERK 74 YO MALE FROM HOME TO ER CC SOB X 2 DAYS O2 SAT 87% ON RA SI: COPD EXACERBATION T. 97.4 HR 112 RR 20 B/P 202/93 BNP 238 BIPAP 12/6 FIO2 40% CXR=RIGHT UPPER LOBE INFILTRATE CHEST CT=2.5 x 2.1 cm nodular right paramediastinal focus. This may be area of nodular scarring. Tumor is not excluded. Repeat examination with contrast administration is recommended. IS: VANCO IV CEFEPIME IV SOLU MEDROL IV IV BOLUS NS X 1 LITER ADMITTED TO STEP DOWN @ 0150 STEP DOWN STATUS DCP RETURN HOME
--- NOTE | 2020-01-03 16:25 | CDS Physician Query ---
Clarification is required for compliance, coding accuracy, and to reflect severity of illness for this patient Dear Dr. Raisa Pulliam Date: 01/03/2020 Batting Machine Operator/CDS Name: Laura Reddy Clinical Documentation States: 74 y/o male w/ hx asthma w/ COPD, lung cancer on immunotherapy (unkown stage, possibly stage I with nonsurgical candidacy), presenting with 1 day of SOB, wheezing...COPD/asthma exacerbation RD note: Increased kcal and pro needs r/t cancer and underweight status as evidenced by pt w/ lung cancer s/p chemo, pt is 72% of [place] Body Weight w/ generalized moderate to severe wasting BMI 16.7 Please select the most appropriate option: [x] Protein/Calorie Malnutrition [] Mild [] Moderate [x] Severe [] Hypoalbuminemia [] Cachexia [] Underweight [] Intestinal malabsorption [] Other [] Unable to determine [] Not Applicable Present on Admission: [x] Yes [] No [] Clinically Undetermined ___Raisa Pulliam MD___ _01/04/2020 Physician signature Date Please also document in your Progress Notes and/or Discharge Summary and indicate if the condition was present on admission. MTDD
--- NOTE | 2020-01-03 16:30 | NUR ---
NURSE NOTES: pt discharge home as ordered by suleiman, condition stable.
--- NOTE | 2020-01-04 14:16 | NUR ---
*-* INSURANCE *-* DISCHARGE SUMMARY HAS BEEN FAXED TO: [facility]A P:[phone] F: [phone] (FAX CLINICALS HERE AND TO [employer] [phone]) & [employer] [facility] FAX CLINICALS TO [phone]
== END 2020-01-03 16:11 | disposition home or self-care (01) | DRG 190 ==
LOC: EDBD 23:51 → EMR 23:59 → 2W 01-02 00:35 → EDBEDREQ 01-02 01:19
DX: J44.1 Chronic obstructive pulmonary disease with (acute) exacerbation (principal); E43 Unspecified severe protein-calorie malnutrition; C34.90 Malignant neoplasm of unspecified part of unspecified bronchus or lung; Z68.1 Body mass index [BMI] 19.9 or less, adult; K21.9 Gastro-esophageal reflux disease without esophagitis; Z66 Do not resuscitate
CPT/HCPCS: 36415; 36600; 71045; 71250; 80048; 82803; 83605; 83690; 83880; 84484; 85025; 86710; 87040; 93005; 94660; 94664; 96365; 96366; 96368; 96375; 99291; J7030

== ENCOUNTER 2020-05-07 03:08 | Inpatient (IN) | payer OTHER ==
[2020-05-07] VITALS (8 sets, daily range): BP systolic 156–195; BP diastolic 70–95
[~2020-05-07] VITALS: Ht 172.7 cm; Wt 58.4 kg
[~2020-05-07 03:08] MED LIST: NORVASC10 MG ORAL; PREDNISONE20 MG ORAL; PROCARDIA XL30 MG ORAL
[2020-05-07] MEDS ORDERED: ALBUTEROL2.5 MG/3 M INH (03:14)
[2020-05-07] MEDS ORDERED: Albuterol ud Inhalation HHN ONE ×2 (03:15→04:15)
[2020-05-07] MEDS ORDERED: Ipratropium 0.02% Inh Soln 2.5ml UD HHN ONE (03:15)
[2020-05-07] MEDS ORDERED: Solu-MEDROL 125mg Inj IVP ONE (03:15)
--- NOTE | 2020-05-07 03:18 | Emergency Room Report ---
History of Present Illness General Chief Complaint: Dyspnea/Respdistress Source: Patient, Medical Record, EMS Present Illness HPI This is a 74-year-old male with a history of lung cancer unknown staging. Currently on chemotherapy. He also has a history of COPD. He presents with chief complaint of respiratory distress and hypoxia. Patient said that symptoms started around 9 PM, which is about 6 hours prior to arrival. According to EMS he was tripoding and was in respiratory distress. He was hypoxic in the 80 percentile on room air. They gave him oxygen and dose of 0.5 mg epinephrine IM. No breathing treatment because of current COVID pandemic. Patient improved after getting oxygen and epi. He is still wheezing. Denies any fever chills. Worse with exertion. Better with rest. No relief with his inhaler at home. Similar symptom in the past. 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 Patient History Past Medical History: see triage record, old chart reviewed, COPD Past Surgical History: other Pertinent Family History: none Social History: Reports: smoking Immunizations: other Reviewed Nursing Documentation: PMH: Agreed; PSxH: Agreed Nursing Documentation-PMH Hx Hypertension: Yes Hx Asthma: Yes Hx COPD: Yes Hx Cancer: Yes - lung, throat, intestinal Hx Gastrointestinal Problems: No Hx Neurological Problems: No Review of Systems Eye: Denies: eye pain, blurred vision ENT: Denies: ear pain, nose congestion, throat swelling Respiratory: Reports: cough, shortness of breath Cardiovascular: Denies: chest pain, palpitations Gastrointestinal: Denies: abdominal pain, diarrhea, nausea, vomiting Musculoskeletal: Denies: back pain, joint pain Skin: Denies: rash Neurological: Denies: headache, numbness Endocrine: Denies: increased thirst, increased urine Hematologic/Lymphatic: Denies: easy bruising All Other Systems: negative except mentioned in HPI Physical Exam Vital Signs Date Time Temp Pulse Resp B/P (MAP) Pulse Ox O2 Delivery O2 Flow Rate FiO2 05/07/20 03:10 98.2 104 22 172/71 (104) 100 Non-Rebreather 15.0 Vitals hypoxia Sp02 EP Interpretation: reviewed, abnormal General Appearance: alert, moderate distress, cachetic Head: normocephalic, atraumatic Eyes: bilateral eye PERRL, bilateral eye EOMI ENT: hearing grossly normal, normal pharynx Neck: full range of motion, supple, no meningismus Respiratory: chest non-tender, respiratory distress, decreased breath sounds, accessory muscle use, wheezing Cardiovascular #1: regular rate, rhythm, no murmur Gastrointestinal: normal bowel sounds, non tender, no mass, no organomegaly, no bruit, non-distended Musculoskeletal: back normal, normal range of motion, gait/station normal Psychiatric: mood/affect normal Procedures Critical Care Time Critical Care Time Critical care is mandated in this patient who presented with acute on chronic respiratory failure. Patient require my urgent intervention to attenuate the risks of respiratory collapse which may lead to cardiovascular collapse and . Critical care time is 35 minutes excluding any reportable procedure. Critical care time included evaluation, multiple reevaluation, looking at old charts, interpreting laboratory and diagnostic data, discussing case with patient and family and consultants, and charting. Medical Decision Making Diagnostic Impression: Primary Impression: Acute on chronic respiratory failure with hypoxia Additional Impressions: COPD with exacerbation CKD (chronic kidney disease) Qualified Codes: N18.9 - Chronic kidney disease, unspecified Hypertension Qualified Codes: I10 - Essential (primary) hypertension Anemia in chronic kidney disease (CKD) Qualified Codes: N18.9 - Chronic kidney disease, unspecified; D63.1 - Anemia in chronic kidney disease ER Course Patient presents with respiratory distress with wheezing. Improve after breathing treatment and BiPAP. Cover testing sent. Chest x-ray shows COPD and elevated right hemidiaphragm. Will admit for further work-up. Patient is unstable for transfer. I contacted Dr. Doll for admission. EKG Diagnostic Results Rate: normal Rhythm: NSR ST Segments: other - NSST changes Rhythm Strip Diag. Results EP Interpretation: yes Rate: 95 Rhythm: NSR, no PVC's, no ectopy Chest X-Ray Diagnostic Results Chest X-Ray Diagnostic Results : Chest X-Ray Ordered: Yes # of Views/Limited/Complete: 1 View Indication: Shortness of Breath EP Interpretation: Yes Interpretation: no effusion, no pneumothorax, other - copd, elevated right diaphragm Impression: Other - copd Electronically Signed by: Gurdeep Ballesteros MD Last Vital Signs Date Time Temp Pulse Resp B/P (MAP) Pulse Ox O2 Delivery O2 Flow Rate FiO2 05/07/20 03:10 98.2 104 22 172/71 (104) 100 Non-Rebreather 15.0 Status: improved Disposition: ADMITTED INPATIENT Condition: Serious Gurdeep Ballesteros MD May 07, 2020 03:18
[2020-05-07 03:55] LABS: BASOPHILS % (AUTO) 1.4 % (0.0-2.0); EOSINOPHILS % (AUTO) 6.4 % (0.0-3.0); HEMATOCRIT 38.9 % (42.0-52.0); HEMOGLOBIN 11.9 G/DL (14.2-18.0); LYMPHOCYTES % (AUTO) 43.6 % (20.0-45.0); MEAN CORPUSCULAR VOLUME 90 FL (80-99); MONOCYTES % (AUTO) 6.6 % (1.0-10.0); PLATELET COUNT 227 K/UL (150-450); RED BLOOD COUNT 4.32 M/UL (4.70-6.10); RED CELL DISTRIBUTION WIDTH 12.9 % (11.6-14.8); WHITE BLOOD COUNT 10.5 K/UL (4.8-10.8)
[2020-05-07 04:01] LABS: ANION GAP 11 mmol/L (5-15); BLOOD UREA NITROGEN 34 mg/dL (7-18); CALCIUM 9.8 MG/DL (8.5-10.1); CARBON DIOXIDE 23 MMOL/L (21-32); CHLORIDE 103 MMOL/L (98-107); CREATININE 1.9 MG/DL (0.55-1.30); POTASSIUM 4.2 MMOL/L (3.5-5.1); SODIUM 137 MMOL/L (136-145)
[2020-05-07 04:05] LABS: ALANINE AMINOTRANSFERASE 32 U/L (12-78); ALBUMIN 4.3 G/DL (3.4-5.0); ALBUMIN/GLOBULIN RATIO 1.1 (1.0-2.7); ALKALINE PHOSPHATASE 74 U/L (46-116); ASPARTATE AMINO TRANSFERASE 34 U/L (15-37); BILIRUBIN,TOTAL 0.4 MG/DL (0.2-1.0)
[2020-05-07 04:08] LABS: APPEARANCE,URINE CLEAR; BILIRUBIN, URINE NEGATIVE (NEGATIVE); COLOR,URINE PALE YELLOW; GLUCOSE, URINE (UA) NEGATIVE (NEGATIVE); KETONES,URINE NEGATIVE (NEGATIVE); LEUKOCYTE ESTERASE ,URINE NEGATIVE (NEGATIVE); NITRITE,URINE NEGATIVE (NEGATIVE); PH,URINE 5 (4.5-8.0); PROTEIN,URINE 2+ (NEGATIVE); UROBILINOGEN,URINE NORMAL MG/DL (0.0-1.0)
[2020-05-07] MEDS ORDERED: cefTRIAXone 1 GM in NS 55 ML IVPB ONE (04:15)
[2020-05-07] MEDS ORDERED: Azithromycin 500 MG in NS 275 ML IV ONE (04:15)
[2020-05-07] MEDS: Albuterol/Ipratropium 3ml neb HHN SCH ×5 (07:00→23:00)
--- NOTE | 2020-05-07 08:17 | Consultation ---
History of Present Illness General Chief Complaint: Dyspnea/Respdistress Present Illness Allergies: Coded Allergies: No Known Allergies (Unverified , 01/01/20) Medication History Scheduled Amlodipine Besylate (Norvasc), 10 MG ORAL DAILY Nifedipine Xl* (Procardia Xl*), 60 MG ORAL DAILY Nifedipine Xl* (Procardia Xl*), 30 MG ORAL QHS Prednisone* (Prednisone*), 40 MG ORAL DAILY Scheduled PRN Albuterol Sulfate* (Albuterol Sulfate Hhn*), 3 ML INH Q4H PRN for Shortness of Breath, (Reported) Patient History Healthcare decision maker Resuscitation status Advanced Directive on File Physical Exam Last 24 Hour Vital Signs Date Time Temp Pulse Resp B/P (MAP) Pulse Ox O2 Delivery O2 Flow Rate FiO2 05/07/20 05:30 98.6 98 16 159/71 100 Venturi Mask 15.0 40 05/07/20 04:59 98 16 159/71 100 Venturi Mask 15.0 05/07/20 04:44 98.6 89 25 163/78 100 Venturi Mask 15.0 05/07/20 04:20 176/82 05/07/20 04:20 104 25 100 Bi-Pap 40 108 28 100 05/07/20 03:53 104 26 99 Bi-Pap 40 106 24 100 40 05/07/20 03:47 92 20 100 Bi-pap 05/07/20 03:15 98 22 Non-Rebreather 15.0 05/07/20 03:15 98.3 98 22 166/74 100 Non-Rebreather 15.0 05/07/20 03:10 98.2 104 22 172/71 (104) 100 Non-Rebreather 15.0 Intake and Output 05/06/20 05/07/20 19:00 07:00 Intake Total 1000 ml Balance 1000 ml Intake IV Total 1000 ml # Voids 1 Laboratory Tests Test 05/07/20 03:20 White Blood Count 10.5 K/UL (4.8-10.8) Red Blood Count 4.32 M/UL (4.70-6.10) L Hemoglobin 11.9 G/DL (14.2-18.0) L Hematocrit 38.9 % (42.0-52.0) L Mean Corpuscular Volume 90 FL (80-99) Mean Corpuscular Hemoglobin 27.6 PG (27.0-31.0) Mean Corpuscular Hemoglobin Concent 30.6 G/DL (32.0-36.0) L Red Cell Distribution Width 12.9 % (11.6-14.8) Platelet Count 227 K/UL (150-450) Mean Platelet Volume 6.2 FL (6.5-10.1) L Neutrophils (%) (Auto) 42.0 % (45.0-75.0) L Lymphocytes (%) (Auto) 43.6 % (20.0-45.0) Monocytes (%) (Auto) 6.6 % (1.0-10.0) Eosinophils (%) (Auto) 6.4 % (0.0-3.0) H Basophils (%) (Auto) 1.4 % (0.0-2.0) Urine Color Pale yellow Urine Appearance Clear Urine pH 5 (4.5-8.0) Urine Specific [place] 1.015 (1.005-1.035) Urine Protein 2+ (NEGATIVE) H Urine Glucose (UA) Negative (NEGATIVE) Urine Ketones Negative (NEGATIVE) Urine Blood 1+ (NEGATIVE) H Urine Nitrite Negative (NEGATIVE) Urine Bilirubin Negative (NEGATIVE) Urine Urobilinogen Normal MG/DL (0.0-1.0) Urine Leukocyte Esterase Negative (NEGATIVE) Urine RBC 0-2 /HPF (0 - 0) H Urine WBC 0 /HPF (0 - 0) Urine Squamous Epithelial Cells Few /LPF (NONE/OCC) Urine Bacteria None /HPF (NONE) Sodium Level 137 MMOL/L (136-145) Potassium Level 4.2 MMOL/L (3.5-5.1) Chloride Level 103 MMOL/L (98-107) Carbon Dioxide Level 23 MMOL/L (21-32) Anion Gap 11 mmol/L (5-15) Blood Urea Nitrogen 34 mg/dL (7-18) H Creatinine 1.9 MG/DL (0.55-1.30) H Estimat Glomerular Filtration Rate 42.4 mL/min (>60) Glucose Level 202 MG/DL (74-106) H Lactic Acid Level 1.50 mmol/L (0.4-2.0) Calcium Level 9.8 MG/DL (8.5-10.1) Total Bilirubin 0.4 MG/DL (0.2-1.0) Aspartate Amino Transf (AST/SGOT) 34 U/L (15-37) Alanine Aminotransferase (ALT/SGPT) 32 U/L (12-78) Alkaline Phosphatase 74 U/L (46-116) Troponin I 0.000 ng/mL (0.000-0.056) Total Protein 8.1 G/DL (6.4-8.2) Albumin 4.3 G/DL (3.4-5.0) Globulin 3.8 g/dL Albumin/Globulin Ratio 1.1 (1.0-2.7) Height (Feet): 5 Height (Inches): 8.00 Weight (Pounds): 165 Medications Current Medications Medications (Trade) Dose Ordered Sig/Tyron Route PRN Reason Start Time Stop Time Status Last Admin Dose Admin Acetaminophen (Tylenol) 650 mg Q6H PRN ORAL Temp >100.5 05/07/20 06:45 06/06/20 06:44 Albuterol/ Ipratropium (Albuterol/ Ipratropium) 3 ml Q4HRT HHN 05/07/20 07:00 05/12/20 06:59 Azithromycin 500 mg/Sodium Chloride 275 ml @ 275 mls/hr DAILY IV 05/08/20 09:00 05/13/20 08:59 Ceftriaxone Sodium 1 gm/ Dextrose 55 ml @ 110 mls/hr Q24H IVPB 05/08/20 06:00 05/15/20 05:59 Hydralazine HCl (Apresoline) 10 mg Q4H PRN IV SBP > 150mmHg 05/07/20 06:45 08/05/20 06:44 Methylprednisolone Sodium Succinate (Solu-MEDROL) 60 mg EVERY 12 HOURS IVP 05/07/20 09:00 08/05/20 08:59 Ondansetron HCl (Zofran) 4 mg Q4H PRN IVP Nausea & Vomiting 05/07/20 06:45 06/06/20 06:44 Hermann Doll M.D. May 07, 2020 08:17
[2020-05-07] MEDS: Solu-MEDROL 125mg Inj IVP SCH ×2 (09:12→21:13)
--- NOTE | 2020-05-07 12:40 | Diagnostic Imaging Report ---
Indication: Reason For Exam: DVT Technique: Grayscale and duplex images of the bilateral lower extremity veins Comparison: None Findings: Bilaterally, grayscale and duplex images demonstrate no evidence of intraluminal thrombus. Normal phasic Doppler waveforms, demonstrating normal augmentation response and no evidence of valvular insufficiency. Greater saphenous vein(s) and tibial veins are patent. Normal compressibility. Impression: Negative for evidence of lower extremity deep venous thrombosis bilaterally
--- NOTE | 2020-05-07 12:41 | Diagnostic Imaging Report ---
Indication: Shortness of breath Technique: One view of the chest Comparison: 01/02/2020 Findings: There is persistent elevation right hemidiaphragm. The lungs and pleural spaces are clear. The heart size is normal. Right chest port catheter again demonstrated. There is evidence of prior cholecystectomy. No significant change Impression: No acute process
--- NOTE | 2020-05-07 14:15 | Consultation ---
DATE OF CONSULTATION: 05/07/2020 PULMONARY CONSULTATION CONSULTING PHYSICIAN: Aaron Leung MD. HISTORY OF PRESENT ILLNESS: This is a 74-year-old male with history of lung cancer on chemotherapy. He also has COPD, came to the hospital with shortness of breath and hypoxia. The patient states that he was in marked distress and was fairly hypoxic. He was given epinephrine and oxygen and brought to the hospital. At this time, he is admitted to the step-down unit. PAST MEDICAL HISTORY: Notable for advanced lung cancer, COPD, asthma, hypertension. HOME MEDICATIONS: Reviewed and reconciled in the chart. REVIEW OF SYSTEMS: Denies any headaches, hematemesis, melena, or hematochezia. PHYSICAL EXAMINATION: GENERAL: Reveals a 74-year-old male. VITAL SIGNS: O2 saturation is 95% on Venti-mask oxygen. Heart rate 94, blood pressure 180/70, respirations are 22. HEENT: Unremarkable. CHEST: Diminished breath sounds bilaterally. HEART: Normal heart sounds. ABDOMEN: Soft. EXTREMITIES: There is no edema. LABORATORY DATA: Lab testing shows hemoglobin 11.9, otherwise normal CBC. Creatinine 1.9. Urinalysis negative. DIAGNOSTIC STUDIES: X-ray chest obtained in December of this year has shown right upper lobe mass. He has chest port in place. X-ray chest obtained yesterday shows elevated hemidiaphragm and possibility of right upper lobe infiltrate. IMPRESSION: 1. History of lung cancer, on chemotherapy. 2. Chronic obstructive pulmonary disease with exacerbation. DISCUSSION: Admit to the hospital. Need to exclude COVID-19. We will order oxygen and pulmonary hygiene. The patient will benefit from steroids and oxygen as well as empiric antibiotics. We will follow. Aaron Leung M.D. DR: DELFINO JOB#: [id number] CC:
[2020-05-07] MEDS ORDERED: guaiFENesin /DM 10ml syrup ORAL PRN (18:30)
[2020-05-07] MEDS: Heparin 5000 units/ml inj SUBQ SCH (21:14)
--- NOTE | 2020-05-07 21:25 | History & Physical ---
History of Present Illness General Reason for Hospitalization: Dyspnea/Respdistress Present Illness HPI This is a 74 year old male with the past medical history of COPD, lung cancer, HTN, and CKD presenting with progressive worsening of shortness of breath and dyspnea on exertion.He notes low grade fevers and chills. patient [facility]. He is currently being treated for lung cancer by oral chemotherapy. Findings: There is persistent elevation right hemidiaphragm. The lungs and pleural spaces are clear. The heart size is normal. Right chest port catheter again demonstrated. There is evidence of prior cholecystectomy. No significant change Impression: No acute process Allergies: Coded Allergies: No Known Allergies (Unverified , 01/01/20) COVID-19 Screening Contact w/high risk pt: No Recent Travel to affected area: No Experienced COVID-19 symptoms?: Yes COVID-19 symptoms experienced: Shortness of Breath Medication History Scheduled Amlodipine Besylate (Norvasc), 10 MG ORAL DAILY Nifedipine Xl* (Procardia Xl*), 60 MG ORAL DAILY Nifedipine Xl* (Procardia Xl*), 30 MG ORAL QHS Prednisone* (Prednisone*), 40 MG ORAL DAILY Scheduled PRN Albuterol Sulfate* (Albuterol Sulfate Hhn*), 3 ML INH Q4H PRN for Shortness of Breath, (Reported) Patient History Healthcare decision maker Resuscitation status Advanced Directive on File Review of Systems Review of Symptoms General ROS: no weight loss or fever Psychological ROS: no depression or mood changes, no memory loss Ophthalmic ROS: no visual changes or eye irritation ENT ROS: no nasal congestion, hearing loss, dizziness Allergy and Immunology ROS: no allergic symptoms or urticaria Hematological and Lymphatic ROS: no swollen glands, unusual bleeding or bruising Endocrine ROS: no polyuria, polydipsia, weight changes, temperature intolerance Respiratory ROS: + cough, + shortness of breath Cardiovascular ROS: no chest pain or dyspnea on exertion Gastrointestinal ROS: denies abdominal pain, bright red blood in stool. Musculoskeletal ROS: no myalgias or arthralgias Neurological ROS: no TIA or stroke symptoms Dermatological ROS: no new or changing skin lesions, rashes or pruritis Physical Exam Physical Exam General appearance: alert, cooperative, no distress, appears stated age Head: Normocephalic, without obvious abnormality, atraumatic Eyes: conjunctivae/corneas clear. PERRL, EOM's intact. Fundi benign Throat: Lips, mucosa, and tongue normal. Teeth and gums normal Neck: supple, symmetrical, trachea midline, no adenopathy, thyroid: not enlarged, symmetric, no tenderness/mass/nodules, no carotid bruit and no JVD Lungs: + wheezes bilaterally Heart: regular rate and rhythm, S1, S2 normal, no murmur, click, rub or gallop Abdomen: soft, non-tender. Bowel sounds normal. No masses, no organomegaly Extremities: extremities normal, atraumatic, no cyanosis or edema Pulses: 2+ and symmetric Skin: Skin color, texture, turgor normal. No rashes or lesions Neurologic: Grossly normal Last 24 Hour Vital Signs Date Time Temp Pulse Resp B/P (MAP) Pulse Ox O2 Delivery O2 Flow Rate FiO2 05/07/20 21:13 180/95 05/07/20 21:13 180/95 05/07/20 20:06 95 Nasal Cannula 3.0 32 05/07/20 20:00 Nasal Cannula 3.0 05/07/20 20:00 93 05/07/20 20:00 98.1 93 22 180/95 (123) 95 05/07/20 20:00 3.0 05/07/20 17:38 195/95 05/07/20 16:00 97.4 106 20 195/95 (128) 99 05/07/20 16:00 Nasal Cannula 3.0 05/07/20 16:00 3.0 05/07/20 15:54 99 05/07/20 12:00 3.0 05/07/20 12:00 99 05/07/20 12:00 97.9 99 18 156/83 (107) 98 05/07/20 12:00 Nasal Cannula 3.0 05/07/20 10:14 180/73 05/07/20 09:12 99 193/84 05/07/20 08:00 97.0 99 22 180/70 (106) 98 05/07/20 08:00 94 05/07/20 08:00 3.0 05/07/20 08:00 Nasal Cannula 3.0 05/07/20 07:12 Venturi Mask 8.0 05/07/20 05:35 97.0 95 20 156/72 (100) 100 05/07/20 05:30 98.6 98 16 159/71 100 Venturi Mask 15.0 40 05/07/20 04:59 98 16 159/71 100 Venturi Mask 15.0 05/07/20 04:44 98.6 89 25 163/78 100 Venturi Mask 15.0 05/07/20 04:20 176/82 05/07/20 04:20 104 25 100 Bi-Pap 40 108 28 100 05/07/20 03:53 104 26 99 Bi-Pap 40 106 24 100 40 05/07/20 03:47 92 20 100 Bi-pap 05/07/20 03:15 98 22 Non-Rebreather 15.0 05/07/20 03:15 98.3 98 22 166/74 100 Non-Rebreather 15.0 05/07/20 03:10 98.2 104 22 172/71 (104) 100 Non-Rebreather 15.0 Intake and Output 05/06/20 05/07/20 19:00 07:00 Intake Total 1000 ml Balance 1000 ml IV Total 1000 ml # Voids 1 Laboratory Tests Test 05/07/20 03:20 White Blood Count 10.5 K/UL (4.8-10.8) Red Blood Count 4.32 M/UL (4.70-6.10) L Hemoglobin 11.9 G/DL (14.2-18.0) L Hematocrit 38.9 % (42.0-52.0) L Mean Corpuscular Volume 90 FL (80-99) Mean Corpuscular Hemoglobin 27.6 PG (27.0-31.0) Mean Corpuscular Hemoglobin Concent 30.6 G/DL (32.0-36.0) L Red Cell Distribution Width 12.9 % (11.6-14.8) Platelet Count 227 K/UL (150-450) Mean Platelet Volume 6.2 FL (6.5-10.1) L Neutrophils (%) (Auto) 42.0 % (45.0-75.0) L Lymphocytes (%) (Auto) 43.6 % (20.0-45.0) Monocytes (%) (Auto) 6.6 % (1.0-10.0) Eosinophils (%) (Auto) 6.4 % (0.0-3.0) H Basophils (%) (Auto) 1.4 % (0.0-2.0) Urine Color Pale yellow Urine Appearance Clear Urine pH 5 (4.5-8.0) Urine Specific [place] 1.015 (1.005-1.035) Urine Protein 2+ (NEGATIVE) H Urine Glucose (UA) Negative (NEGATIVE) Urine Ketones Negative (NEGATIVE) Urine Blood 1+ (NEGATIVE) H Urine Nitrite Negative (NEGATIVE) Urine Bilirubin Negative (NEGATIVE) Urine Urobilinogen Normal MG/DL (0.0-1.0) Urine Leukocyte Esterase Negative (NEGATIVE) Urine RBC 0-2 /HPF (0 - 0) H Urine WBC 0 /HPF (0 - 0) Urine Squamous Epithelial Cells Few /LPF (NONE/OCC) Urine Bacteria None /HPF (NONE) Sodium Level 137 MMOL/L (136-145) Potassium Level 4.2 MMOL/L (3.5-5.1) Chloride Level 103 MMOL/L (98-107) Carbon Dioxide Level 23 MMOL/L (21-32) Anion Gap 11 mmol/L (5-15) Blood Urea Nitrogen 34 mg/dL (7-18) H Creatinine 1.9 MG/DL (0.55-1.30) H Estimat Glomerular Filtration Rate 42.4 mL/min (>60) Glucose Level 202 MG/DL (74-106) H Lactic Acid Level 1.50 mmol/L (0.4-2.0) Calcium Level 9.8 MG/DL (8.5-10.1) Total Bilirubin 0.4 MG/DL (0.2-1.0) Aspartate Amino Transf (AST/SGOT) 34 U/L (15-37) Alanine Aminotransferase (ALT/SGPT) 32 U/L (12-78) Alkaline Phosphatase 74 U/L (46-116) Troponin I 0.000 ng/mL (0.000-0.056) Total Protein 8.1 G/DL (6.4-8.2) Albumin 4.3 G/DL (3.4-5.0) Globulin 3.8 g/dL Albumin/Globulin Ratio 1.1 (1.0-2.7) Height (Feet): 5 Height (Inches): 8.00 Weight (Pounds): 165 Medications Current Medications Medications (Trade) Dose Ordered Sig/Tyron Route PRN Reason Start Time Stop Time Status Last Admin Dose Admin Acetaminophen (Tylenol) 650 mg Q6H PRN ORAL Temp >100.5 05/07/20 06:45 06/06/20 06:44 Albuterol/ Ipratropium (Albuterol/ Ipratropium) 3 ml Q4HRT HHN 05/07/20 07:00 05/12/20 06:59 Amlodipine Besylate (Norvasc) 5 mg BID ORAL 05/08/20 09:00 06/07/20 08:59 Azithromycin 500 mg/Sodium Chloride 275 ml @ 275 mls/hr DAILY IV 05/08/20 09:00 05/13/20 08:59 Ceftriaxone Sodium 1 gm/ Dextrose 55 ml @ 110 mls/hr Q24H IVPB 05/08/20 06:00 05/15/20 05:59 Guaifenesin/ Dextromethorphan (Robitussin DM Syrup) 10 ml Q6H PRN ORAL For Cough 05/07/20 18:30 08/05/20 18:29 05/07/20 21:13 Heparin Sodium (Porcine) (Heparin 5000 units/ml) 5,000 units EVERY 12 HOURS SUBQ 05/07/20 21:00 06/21/20 20:59 05/07/20 21:14 Hydralazine HCl (Apresoline) 10 mg Q4H PRN IV SBP > 150mmHg 05/07/20 06:45 08/05/20 06:44 05/07/20 21:13 Hydralazine HCl (Apresoline) 50 mg Q8HR ORAL 05/07/20 22:00 08/05/20 21:59 05/07/20 21:13 Methylprednisolone Sodium Succinate (Solu-MEDROL) 60 mg EVERY 12 HOURS IVP 05/07/20 09:00 08/05/20 08:59 05/07/20 21:13 Ondansetron HCl (Zofran) 4 mg Q4H PRN IVP Nausea & Vomiting 05/07/20 06:45 06/06/20 06:44 Assessment/Plan Diagnosis [place] I: #Hypoxemic resp failure #COPD exacerbation #r/o COVID #GAUDENCIO #HTN #Lung CA - admit inpatient - echo - pulm eval - breathing tx - monitor renal function - abx per ID - BP control - resume home meds - avoid nephrotoxins - monitor BMP, mag and phos daily Time spent 70 mi, greater than 50% on care coordination and counseling MIPS Hospital declaration INPATIENT level of care is warranted for this patient because patient is a 89 year old with who presents with suspicion of . I have a high level of concern because . Patient is at high risk for . Plan of care/treatment include . Patient care is expected to be greater than 2 midnights. OBSERVATION level of care is warranted for this patient. Patient is a 89 year old with who presents with . Patient will be admitted for 1 midnight, but if additional night(s) is/are necessary, patient will be converted to inpatient status for the entire hospitalization Disposition: Once the patient is stable to leave the hospital, I anticipate the patient will likely be discharged to the following environment: Estimated discharge date: I spent 70 minutes on this patient's case, and minutes was dedicated to counseling and/or care coordination. MIPS (Merit-based Incentive Payment System) Applicable CPT: 34792, 01398 CHECK ALL THAT ARE MET: Measure #5 (CHF): All ages. Prescribe TROY/ARB upon discharge for patients with left ventricular systolic dysfunction. If not, the reason is clearly documented in the medical chart. Measure #8 (CHF): All ages. Prescribe a beta ellis upon discharge for patients with left ventricular systolic dysfunction. If not, the reason is clearly documented in the medical chart. Measure #47 Advance care plan or surrogate decision maker documented in the medical record. Measure #130 The provider has documented, updated, or reviewed the patients current medication list and has documented it in the patients note. Measure #374 (All): Send report to referring provider. Measure #407(Sepsis due to MSSA bacteremia): Age 18+ Patient treated with a beta-lactam antibiotic (Nafcillin, Oxacillin or Cefazolin) as definitive therapy. MEDICAL COMPLEXITY High complexity medical decision making (need 2/3 categories) Problem - need 4 points Acute/new problem with new plan for workup (4 points, 1 max) Acute/new problem without additional workup (3 points, 1 max) Unstable chronic problem actively being managed (2 point each, 2 max) Stable chronic problem actively being managed (1 point each, 2 max) Self-limited/transient process (constipation, muscle ache, etc) (1 point each , 2 max) Data - need 4 points Reviewed labs/imaging studies (1 points, 2 max) Independent review of imaging (EKG, xrays, etc) (2 points, 2 max) Discussed case with consult/other MD/RN (2 points, 2 max) High Risk - qualify if have one of the following: Severe exacerbation of acute problem, acute mental status change, IV narcotics , monitoring drug levels (vancomycin, INR, tacrolimus etc) Hermann Doll M.D. May 07, 2020 21:25
[2020-05-07] MEDS ORDERED: HydrALAZINE 50mg tab ORAL SCH ×2 (21:34→22:00)
--- NOTE | 2020-05-07 23:00 | Infectious Diseases Prog Note ---
Assessment/Plan Assessment/Plan Full consult dictated: A) 1) rule covid -19 infection 2) rule out CAP 3) sob, copd P) 1) ceftriaxone and azithromycin 2) await covid-19 testing 3) f/u chest x-ray and labs 4) thank you Subjective Allergies: Coded Allergies: No Known Allergies (Unverified , 01/01/20) Objective Last 24 Hour Vital Signs Date Time Temp Pulse Resp B/P (MAP) Pulse Ox O2 Delivery O2 Flow Rate FiO2 05/07/20 21:47 156/77 05/07/20 21:13 180/95 05/07/20 21:13 180/95 05/07/20 20:06 95 Nasal Cannula 3.0 32 05/07/20 20:00 Nasal Cannula 3.0 05/07/20 20:00 93 05/07/20 20:00 98.1 93 22 180/95 (123) 95 05/07/20 20:00 3.0 05/07/20 17:38 195/95 05/07/20 16:00 97.4 106 20 195/95 (128) 99 05/07/20 16:00 Nasal Cannula 3.0 05/07/20 16:00 3.0 05/07/20 15:54 99 05/07/20 12:00 3.0 05/07/20 12:00 99 05/07/20 12:00 97.9 99 18 156/83 (107) 98 05/07/20 12:00 Nasal Cannula 3.0 05/07/20 10:14 180/73 05/07/20 09:12 99 193/84 05/07/20 08:00 97.0 99 22 180/70 (106) 98 05/07/20 08:00 94 05/07/20 08:00 3.0 05/07/20 08:00 Nasal Cannula 3.0 05/07/20 07:12 Venturi Mask 8.0 05/07/20 05:35 97.0 95 20 156/72 (100) 100 05/07/20 05:30 98.6 98 16 159/71 100 Venturi Mask 15.0 40 05/07/20 04:59 98 16 159/71 100 Venturi Mask 15.0 05/07/20 04:44 98.6 89 25 163/78 100 Venturi Mask 15.0 05/07/20 04:20 176/82 05/07/20 04:20 104 25 100 Bi-Pap 40 108 28 100 05/07/20 03:53 104 26 99 Bi-Pap 40 106 24 100 40 05/07/20 03:47 92 20 100 Bi-pap 05/07/20 03:15 98 22 Non-Rebreather 15.0 05/07/20 03:15 98.3 98 22 166/74 100 Non-Rebreather 15.0 05/07/20 03:10 98.2 104 22 172/71 (104) 100 Non-Rebreather 15.0 Height (Feet): 5 Height (Inches): 8.00 Weight (Pounds): 165 Laboratory Tests Test 05/07/20 03:20 White Blood Count 10.5 K/UL (4.8-10.8) Red Blood Count 4.32 M/UL (4.70-6.10) L Hemoglobin 11.9 G/DL (14.2-18.0) L Hematocrit 38.9 % (42.0-52.0) L Mean Corpuscular Volume 90 FL (80-99) Mean Corpuscular Hemoglobin 27.6 PG (27.0-31.0) Mean Corpuscular Hemoglobin Concent 30.6 G/DL (32.0-36.0) L Red Cell Distribution Width 12.9 % (11.6-14.8) Platelet Count 227 K/UL (150-450) Mean Platelet Volume 6.2 FL (6.5-10.1) L Neutrophils (%) (Auto) 42.0 % (45.0-75.0) L Lymphocytes (%) (Auto) 43.6 % (20.0-45.0) Monocytes (%) (Auto) 6.6 % (1.0-10.0) Eosinophils (%) (Auto) 6.4 % (0.0-3.0) H Basophils (%) (Auto) 1.4 % (0.0-2.0) Urine Color Pale yellow Urine Appearance Clear Urine pH 5 (4.5-8.0) Urine Specific [place] 1.015 (1.005-1.035) Urine Protein 2+ (NEGATIVE) H Urine Glucose (UA) Negative (NEGATIVE) Urine Ketones Negative (NEGATIVE) Urine Blood 1+ (NEGATIVE) H Urine Nitrite Negative (NEGATIVE) Urine Bilirubin Negative (NEGATIVE) Urine Urobilinogen Normal MG/DL (0.0-1.0) Urine Leukocyte Esterase Negative (NEGATIVE) Urine RBC 0-2 /HPF (0 - 0) H Urine WBC 0 /HPF (0 - 0) Urine Squamous Epithelial Cells Few /LPF (NONE/OCC) Urine Bacteria None /HPF (NONE) Sodium Level 137 MMOL/L (136-145) Potassium Level 4.2 MMOL/L (3.5-5.1) Chloride Level 103 MMOL/L (98-107) Carbon Dioxide Level 23 MMOL/L (21-32) Anion Gap 11 mmol/L (5-15) Blood Urea Nitrogen 34 mg/dL (7-18) H Creatinine 1.9 MG/DL (0.55-1.30) H Estimat Glomerular Filtration Rate 42.4 mL/min (>60) Glucose Level 202 MG/DL (74-106) H Lactic Acid Level 1.50 mmol/L (0.4-2.0) Calcium Level 9.8 MG/DL (8.5-10.1) Total Bilirubin 0.4 MG/DL (0.2-1.0) Aspartate Amino Transf (AST/SGOT) 34 U/L (15-37) Alanine Aminotransferase (ALT/SGPT) 32 U/L (12-78) Alkaline Phosphatase 74 U/L (46-116) Troponin I 0.000 ng/mL (0.000-0.056) Total Protein 8.1 G/DL (6.4-8.2) Albumin 4.3 G/DL (3.4-5.0) Globulin 3.8 g/dL Albumin/Globulin Ratio 1.1 (1.0-2.7) Current Medications Medications (Trade) Dose Ordered Sig/Tyron Route PRN Reason Start Time Stop Time Status Last Admin Dose Admin Acetaminophen (Tylenol) 650 mg Q6H PRN ORAL Temp >100.5 05/07/20 06:45 06/06/20 06:44 Albuterol/ Ipratropium (Albuterol/ Ipratropium) 3 ml Q4HRT HHN 05/07/20 07:00 05/12/20 06:59 Amlodipine Besylate (Norvasc) 5 mg BID ORAL 05/08/20 09:00 06/07/20 08:59 Azithromycin 500 mg/Sodium Chloride 275 ml @ 275 mls/hr DAILY IV 05/08/20 09:00 05/13/20 08:59 Ceftriaxone Sodium 1 gm/ Dextrose 55 ml @ 110 mls/hr Q24H IVPB 05/08/20 06:00 05/15/20 05:59 Guaifenesin/ Dextromethorphan (Robitussin DM Syrup) 10 ml Q6H PRN ORAL For Cough 05/07/20 18:30 08/05/20 18:29 05/07/20 21:13 Heparin Sodium (Porcine) (Heparin 5000 units/ml) 5,000 units EVERY 12 HOURS SUBQ 05/07/20 21:00 06/21/20 20:59 05/07/20 21:14 Hydralazine HCl (Apresoline) 10 mg Q4H PRN IV SBP > 150mmHg 05/07/20 06:45 08/05/20 06:44 05/07/20 21:13 Hydralazine HCl (Apresoline) 50 mg ONCE ORAL 05/07/20 21:34 05/07/20 23:00 05/07/20 21:47 Hydralazine HCl (Apresoline) 100 mg Q8HR ORAL 05/08/20 06:00 08/06/20 05:59 Methylprednisolone Sodium Succinate (Solu-MEDROL) 60 mg EVERY 12 HOURS IVP 05/07/20 09:00 08/05/20 08:59 05/07/20 21:13 Ondansetron HCl (Zofran) 4 mg Q4H PRN IVP Nausea & Vomiting 05/07/20 06:45 06/06/20 06:44 Sherri Murphy MD May 07, 2020 23:00
[2020-05-08] VITALS (7 sets, daily range): BP systolic 152–184; BP diastolic 73–85
[2020-05-08] MEDS: cefTRIAXone 1 GM in D5W 50 ML IVPB SCH ×2 (00:22→22:23)
[2020-05-08] MEDS: Albuterol/Ipratropium 3ml neb HHN SCH ×6 (03:00→22:52)
[2020-05-08 05:10] LABS: HEMATOCRIT 38.2 % (42.0-52.0); HEMOGLOBIN 11.9 G/DL (14.2-18.0); MEAN CORPUSCULAR VOLUME 90 FL (80-99); PLATELET COUNT 217 K/UL (150-450); RED BLOOD COUNT 4.26 M/UL (4.70-6.10); RED CELL DISTRIBUTION WIDTH 12.6 % (11.6-14.8); WHITE BLOOD COUNT 8.3 K/UL (4.8-10.8)
[2020-05-08 05:51] LABS: ALANINE AMINOTRANSFERASE 94 U/L (12-78); ALBUMIN 3.7 G/DL (3.4-5.0); ALBUMIN/GLOBULIN RATIO 0.9 (1.0-2.7); ALKALINE PHOSPHATASE 80 U/L (46-116); ANION GAP 11 mmol/L (5-15); ASPARTATE AMINO TRANSFERASE 62 U/L (15-37); BILIRUBIN,TOTAL 0.3 MG/DL (0.2-1.0); BLOOD UREA NITROGEN 29 mg/dL (7-18); CALCIUM 8.8 MG/DL (8.5-10.1); CARBON DIOXIDE 25 MMOL/L (21-32); CHLORIDE 104 MMOL/L (98-107); CREATININE 1.8 MG/DL (0.55-1.30); PHOSPHORUS 3.7 MG/DL (2.5-4.9); SODIUM 140 MMOL/L (136-145)
[2020-05-08] MEDS ORDERED: cefTRIAXone 1 GM in D5W 55 ML IVPB SCH (06:00)
[2020-05-08] MEDS: HydrALAZINE 50mg tab ORAL SCH ×3 (06:13→21:16)
[2020-05-08] MEDS ORDERED: Azithromycin 500 MG in NS 275 ML IV SCH (09:00)
[2020-05-08] MEDS: Solu-MEDROL 125mg Inj IVP SCH ×2 (09:12→20:03)
[2020-05-08] MEDS: Heparin 5000 units/ml inj SUBQ SCH ×2 (09:14→20:03)
--- NOTE | 2020-05-08 10:57 | Pulmonology Progress Note ---
Subjective Interval Events: None new Constitutional: Reports: no symptoms HEENT: Repors: no symptoms Respiratory: Reports: no symptoms Cardiovascular: Reports: no symptoms Gastrointestinal/Abdominal: Reports: no symptoms Allergies: Coded Allergies: No Known Allergies (Unverified , 01/01/20) Objective Last 24 Hour Vital Signs Date Time Temp Pulse Resp B/P (MAP) Pulse Ox O2 Delivery O2 Flow Rate FiO2 05/08/20 09:13 105 181/80 05/08/20 08:05 98 Nasal Cannula 3.0 32 05/08/20 08:00 97.0 105 18 181/80 (113) 98 05/08/20 08:00 3.0 05/08/20 08:00 Nasal Cannula 3.0 05/08/20 06:13 167/81 05/08/20 04:00 87 05/08/20 04:00 98.1 95 19 167/81 (109) 97 05/08/20 04:00 3.0 05/08/20 04:00 Nasal Cannula 3.0 05/08/20 01:31 184/85 05/08/20 00:00 Nasal Cannula 3.0 05/08/20 00:00 97.7 93 20 184/85 (118) 95 05/08/20 00:00 3.0 05/08/20 00:00 86 05/07/20 21:47 156/77 05/07/20 21:13 180/95 05/07/20 21:13 180/95 05/07/20 20:06 95 Nasal Cannula 3.0 32 05/07/20 20:00 Nasal Cannula 3.0 05/07/20 20:00 93 05/07/20 20:00 98.1 93 22 180/95 (123) 95 05/07/20 20:00 3.0 05/07/20 17:38 195/95 05/07/20 16:00 97.4 106 20 195/95 (128) 99 05/07/20 16:00 Nasal Cannula 3.0 05/07/20 16:00 3.0 05/07/20 15:54 99 05/07/20 12:00 3.0 05/07/20 12:00 99 05/07/20 12:00 97.9 99 18 156/83 (107) 98 05/07/20 12:00 Nasal Cannula 3.0 Intake and Output 05/07/20 05/08/20 18:59 06:59 Intake Total 600 ml 290 ml Output Total 250 ml 950 ml Balance 350 ml -660 ml Intake Oral 600 ml 240 ml IV Total 50 ml Output Urine Total 250 ml 950 ml General Appearance: no acute distress HEENT: normocephalic Respiratory: chest wall non-tender, lungs clear Cardiovascular: normal peripheral pulses, regular rhythm Microbiology Date/Time Source Procedure Growth Status 05/07/20 03:20 Blood Blood Culture - Preliminary NO GROWTH AFTER 24 HOURS Resulted 05/07/20 03:05 Blood Blood Culture - Preliminary NO GROWTH AFTER 24 HOURS Resulted 05/07/20 03:20 Nasopharynx Coronavirus COVID-19 PCR ([facility]) - Final Complete Laboratory Tests 05/08/20 04:10: White Blood Count 8.3, Red Blood Count 4.26L, Hemoglobin 11.9L, Hematocrit 38.2L , Mean Corpuscular Volume 90, Mean Corpuscular Hemoglobin 27.8, Mean Corpuscular Hemoglobin Concent 31.0L, Red Cell Distribution Width 12.6, Platelet Count 217, Mean Platelet Volume 6.5, Neutrophils (%) (Auto) , Lymphocytes (%) (Auto) , Monocytes (%) (Auto) , Eosinophils (%) (Auto) , Basophils (%) (Auto) , Differential Total Cells Counted 100, Neutrophils % ( Manual) 93H, Lymphocytes % (Manual) 6L, Monocytes % (Manual) 1, Eosinophils % ( Manual) 0, Basophils % (Manual) 0, Band Neutrophils 0, Platelet Estimate Adequate, Platelet Morphology Normal, Hypochromasia 1+, Sodium Level 140, Potassium Level 5.0, Chloride Level 104, Carbon Dioxide Level 25, Anion Gap 11, Blood Urea Nitrogen 29H, Creatinine 1.8H, Estimat Glomerular Filtration Rate 45.2, Glucose Level 142H, Calcium Level 8.8, Phosphorus Level 3.7, Magnesium Level 2.1, Total Bilirubin 0.3, Aspartate Amino Transf (AST/SGOT) 62H, Alanine Aminotransferase (ALT/SGPT) 94H, Alkaline Phosphatase 80, Total Protein 7.6, Albumin 3.7, Globulin 3.9, Albumin/Globulin Ratio 0.9L Current Medications Medications (Trade) Dose Ordered Sig/Tyron Route PRN Reason Start Time Stop Time Status Last Admin Dose Admin Acetaminophen (Tylenol) 650 mg Q6H PRN ORAL Temp >100.5 05/07/20 06:45 06/06/20 06:44 Albuterol/ Ipratropium (Albuterol/ Ipratropium) 3 ml Q4HRT HHN 05/07/20 07:00 05/12/20 06:59 Amlodipine Besylate (Norvasc) 5 mg BID ORAL 05/08/20 09:00 06/07/20 08:59 05/08/20 09:13 Azithromycin 500 mg/Sodium Chloride 275 ml @ 275 mls/hr DAILY IV 05/08/20 09:00 05/13/20 08:59 05/08/20 09:13 Ceftriaxone Sodium 1 gm/ Dextrose 50 ml @ 100 mls/hr Q24H IVPB 05/07/20 23:00 05/14/20 22:59 05/08/20 00:22 Guaifenesin/ Dextromethorphan (Robitussin DM Syrup) 10 ml Q6H PRN ORAL For Cough 05/07/20 18:30 08/05/20 18:29 05/07/20 21:13 Heparin Sodium (Porcine) (Heparin 5000 units/ml) 5,000 units EVERY 12 HOURS SUBQ 05/07/20 21:00 06/21/20 20:59 05/08/20 09:14 Hydralazine HCl (Apresoline) 10 mg Q4H PRN IV SBP > 150mmHg 05/07/20 06:45 08/05/20 06:44 05/08/20 01:31 Hydralazine HCl (Apresoline) 100 mg Q8HR ORAL 05/08/20 06:00 08/06/20 05:59 05/08/20 06:13 Methylprednisolone Sodium Succinate (Solu-MEDROL) 60 mg EVERY 12 HOURS IVP 05/07/20 09:00 08/05/20 08:59 05/08/20 09:12 Ondansetron HCl (Zofran) 4 mg Q4H PRN IVP Nausea & Vomiting 05/07/20 06:45 06/06/20 06:44 Assessment/Plan Assessment/Plan IMPRESSION: 1. History of lung cancer, on chemotherapy. 2. Chronic obstructive pulmonary disease with exacerbation. DISCUSSION: Negative for COVID-19. Continue oxygen and pulmonary hygiene. The patient will benefit from steroids and oxygen as well as empiric antibiotics. I will follow. Jimmie Hartman Omar Syed MD May 08, 2020 10:57
--- NOTE | 2020-05-08 11:48 | Diagnostic Imaging Report ---
Indication: Cough Technique: One view of the chest Comparison: 05/07/2020 Findings: There is elevation of the right hemidiaphragm. Right jugular port catheter is again demonstrated. The lungs pleural spaces are clear. Cystectomy clips are again noted. There is no significant interim change Impression: Unchanged, over one day, findings as above.
--- NOTE | 2020-05-08 13:41 | General Progress Note ---
Assessment/Plan Assessment/Plan: #Hypoxemic resp failure #COPD exacerbation #r/o COVID #GAUDENCIO #HTN #Lung CA - admit inpatient - echo - pulm eval - breathing tx - monitor renal function - abx per ID - BP control - add amlodipine 5mg BID -add hydralazine 100mg BID - add clonidine 0.1mg TID - resume home meds - avoid nephrotoxins - monitor BMP, mag and phos daily Time spent 70 mi, greater than 50% on care coordination and counseling Subjective ROS Limited/Unobtainable: No Constitutional: Reports: malaise, weakness; Denies: no symptoms, chills, diaphoresis, fever, other HEENT: Denies: no symptoms, eye pain, blurred vision, tearing, double vision, ear pain, ear discharge, nose pain, nose congestion, throat pain, throat swelling, mouth pain, mouth swelling, other Respiratory: Reports: cough, orthopnea, shortness of breath, SOB with excertion Gastrointestinal/Abdominal: Denies: no symptoms, abdomen distended, abdominal pain, black stools, tarry stools, blood in stool, constipated, diarrhea, difficulty swallowing, nausea, poor appetite, poor fluid intake, rectal bleeding , vomiting, other Genitourinary: Denies: no symptoms, burning, discharge, frequency, flank pain, hematuria, incontinence, pain, urgency, other Endocrine: Denies: no symptoms, excessive sweating, flushing, intolerance to cold, intolerance to heat, increased hunger, increased thirst, increased urine, unexplained weight gain, unexplained weight loss, other Hematologic/Lymphatic: Denies: no symptoms, anemia, easy bleeding, easy bruising, other Allergies: Coded Allergies: No Known Allergies (Unverified , 01/01/20) Subjective Cr stable breathing improving on NC BP uptrending will add clonidine Objective Last 24 Hour Vital Signs Date Time Temp Pulse Resp B/P (MAP) Pulse Ox O2 Delivery O2 Flow Rate FiO2 05/08/20 11:32 90 05/08/20 09:13 105 181/80 05/08/20 08:05 98 Nasal Cannula 3.0 32 05/08/20 08:00 97.0 105 18 181/80 (113) 98 05/08/20 08:00 3.0 05/08/20 08:00 Nasal Cannula 3.0 05/08/20 07:36 93 7/8/20 06:13 167/81 05/08/20 04:00 87 05/08/20 04:00 98.1 95 19 167/81 (109) 97 05/08/20 04:00 3.0 05/08/20 04:00 Nasal Cannula 3.0 05/08/20 01:31 184/85 05/08/20 00:00 Nasal Cannula 3.0 05/08/20 00:00 97.7 93 20 184/85 (118) 95 05/08/20 00:00 3.0 05/08/20 00:00 86 05/07/20 21:47 156/77 05/07/20 21:13 180/95 05/07/20 21:13 180/95 05/07/20 20:06 95 Nasal Cannula 3.0 32 05/07/20 20:00 Nasal Cannula 3.0 05/07/20 20:00 93 05/07/20 20:00 98.1 93 22 180/95 (123) 95 05/07/20 20:00 3.0 05/07/20 17:38 195/95 05/07/20 16:00 97.4 106 20 195/95 (128) 99 05/07/20 16:00 Nasal Cannula 3.0 05/07/20 16:00 3.0 05/07/20 15:54 99 Intake and Output 05/07/20 05/08/20 19:00 07:00 Intake Total 600 ml 290 ml Output Total 250 ml 950 ml Balance 350 ml -660 ml Intake Oral 600 ml 240 ml IV Total 50 ml Output Urine Total 250 ml 950 ml Laboratory Tests 05/08/20 04:10: White Blood Count 8.3, Red Blood Count 4.26L, Hemoglobin 11.9L, Hematocrit 38.2L , Mean Corpuscular Volume 90, Mean Corpuscular Hemoglobin 27.8, Mean Corpuscular Hemoglobin Concent 31.0L, Red Cell Distribution Width 12.6, Platelet Count 217, Mean Platelet Volume 6.5, Neutrophils (%) (Auto) , Lymphocytes (%) (Auto) , Monocytes (%) (Auto) , Eosinophils (%) (Auto) , Basophils (%) (Auto) , Differential Total Cells Counted 100, Neutrophils % ( Manual) 93H, Lymphocytes % (Manual) 6L, Monocytes % (Manual) 1, Eosinophils % ( Manual) 0, Basophils % (Manual) 0, Band Neutrophils 0, Platelet Estimate Adequate, Platelet Morphology Normal, Hypochromasia 1+, Sodium Level 140, Potassium Level 5.0, Chloride Level 104, Carbon Dioxide Level 25, Anion Gap 11, Blood Urea Nitrogen 29H, Creatinine 1.8H, Estimat Glomerular Filtration Rate 45.2, Glucose Level 142H, Calcium Level 8.8, Phosphorus Level 3.7, Magnesium Level 2.1, Total Bilirubin 0.3, Aspartate Amino Transf (AST/SGOT) 62H, Alanine Aminotransferase (ALT/SGPT) 94H, Alkaline Phosphatase 80, Total Protein 7.6, Albumin 3.7, Globulin 3.9, Albumin/Globulin Ratio 0.9L Height (Feet): 5 Height (Inches): 8.00 Weight (Pounds): 128 General Appearance: no apparent distress, alert, lethargic EENT: PERRL/EOMI, normal ENT inspection Neck: non-tender, normal alignment Cardiovascular: normal peripheral pulses, normal rate, regular rhythm Abdomen: normal bowel sounds, non tender, soft Neurologic: alert, oriented x 3, responsive Hermann Doll M.D. May 08, 2020 13:41
[2020-05-08] MEDS ORDERED: Tubing IV Secondary IV ONE (17:02)
[2020-05-08] MEDS ORDERED: NS 275ml ONE (17:02)
--- NOTE | 2020-05-08 20:33 | Consultation ---
History of Present Illness General Date patient seen: May 08, 2020 Time patient seen: 20:29 Chief Complaint: Dyspnea/Respdistress Present Illness HPI This is a 74 year old male with the past medical history of COPD, lung cancer, HTN, and CKD presenting with progressive worsening of shortness of breath and dyspnea on exertion.He notes low grade fevers and chills. patient routinely receives medical care at the [facility]. He is currently being treated for lung cancer by oral chemotherapy. Findings: There is persistent elevation right hemidiaphragm. The lungs and pleural spaces are clear. The heart size is normal. Right chest port catheter again demonstrated. There is evidence of prior cholecystectomy. No significant change Allergies: Coded Allergies: No Known Allergies (Unverified , 01/01/20) Medication History Scheduled Amlodipine Besylate (Norvasc), 10 MG ORAL DAILY Nifedipine Xl* (Procardia Xl*), 60 MG ORAL DAILY Nifedipine Xl* (Procardia Xl*), 30 MG ORAL QHS Prednisone* (Prednisone*), 40 MG ORAL DAILY Scheduled PRN Albuterol Sulfate* (Albuterol Sulfate Hhn*), 3 ML INH Q4H PRN for Shortness of Breath, (Reported) Patient History Healthcare decision maker Resuscitation status Advanced Directive on File Review of Systems Constitutional: Reports: no symptoms Eye: Reports: no symptoms ENT: Reports: no symptoms Respiratory: Reports: cough, shortness of breath Cardiovascular: Reports: no symptoms Gastrointestinal: Reports: no symptoms Genitourinary: Reports: no symptoms Musculoskeletal: Reports: no symptoms Skin: Reports: no symptoms Psychiatric: Reports: no symptoms Neurological: Reports: no symptoms Endocrine: Reports: no symptoms Hematologic/Lymphatic: Reports: no symptoms Physical Exam General Appearance: no apparent distress Lines, tubes and drains: peripheral HEENT: normocephalic, atraumatic Neck: non-tender, normal alignment, supple Respiratory/Chest: chest wall non-tender, crackles/rales, rhonchi - bilaterally Cardiovascular/Chest: normal peripheral pulses, normal rate, regular rhythm Abdomen: normal bowel sounds, non tender Extremities: normal range of motion, non-tender, normal inspection, no calf tenderness Skin Exam: normal pigmentation, warm/dry, cyanotic Neurologic: service captain II-XII grossly normal, no motor/sensory deficits Last 24 Hour Vital Signs Date Time Temp Pulse Resp B/P (MAP) Pulse Ox O2 Delivery O2 Flow Rate FiO2 7/8/20 19:24 97 Nasal Cannula 3.0 32 05/08/20 17:53 105 175/82 05/08/20 16:00 97.5 98 18 174/73 (106) 100 05/08/20 16:00 3.0 05/08/20 16:00 Nasal Cannula 3.0 05/08/20 15:16 101 05/08/20 14:45 180/93 05/08/20 12:00 3.0 05/08/20 12:00 98.0 92 18 168/82 (110) 100 05/08/20 12:00 Nasal Cannula 3.0 05/08/20 11:32 90 05/08/20 09:13 105 181/80 05/08/20 08:05 98 Nasal Cannula 3.0 32 05/08/20 08:00 97.0 105 18 181/80 (113) 98 05/08/20 08:00 3.0 05/08/20 08:00 Nasal Cannula 3.0 05/08/20 07:36 93 05/08/20 06:13 167/81 05/08/20 04:00 87 05/08/20 04:00 98.1 95 19 167/81 (109) 97 05/08/20 04:00 3.0 05/08/20 04:00 Nasal Cannula 3.0 05/08/20 01:31 184/85 05/08/20 00:00 Nasal Cannula 3.0 05/08/20 00:00 97.7 93 20 184/85 (118) 95 05/08/20 00:00 3.0 05/08/20 00:00 86 05/07/20 21:47 156/77 05/07/20 21:13 180/95 05/07/20 21:13 180/95 Intake and Output 05/07/20 05/08/20 19:00 07:00 Intake Total 600 ml 290 ml Output Total 250 ml 950 ml Balance 350 ml -660 ml Intake Oral 600 ml 240 ml IV Total 50 ml Output Urine Total 250 ml 950 ml Laboratory Tests Test 05/08/20 04:10 White Blood Count 8.3 K/UL (4.8-10.8) Red Blood Count 4.26 M/UL (4.70-6.10) L Hemoglobin 11.9 G/DL (14.2-18.0) L Hematocrit 38.2 % (42.0-52.0) L Mean Corpuscular Volume 90 FL (80-99) Mean Corpuscular Hemoglobin 27.8 PG (27.0-31.0) Mean Corpuscular Hemoglobin Concent 31.0 G/DL (32.0-36.0) L Red Cell Distribution Width 12.6 % (11.6-14.8) Platelet Count 217 K/UL (150-450) Mean Platelet Volume 6.5 FL (6.5-10.1) Neutrophils (%) (Auto) % (45.0-75.0) Lymphocytes (%) (Auto) % (20.0-45.0) Monocytes (%) (Auto) % (1.0-10.0) Eosinophils (%) (Auto) % (0.0-3.0) Basophils (%) (Auto) % (0.0-2.0) Differential Total Cells Counted 100 Neutrophils % (Manual) 93 % (45-75) H Lymphocytes % (Manual) 6 % (20-45) L Monocytes % (Manual) 1 % (1-10) Eosinophils % (Manual) 0 % (0-3) Basophils % (Manual) 0 % (0-2) Band Neutrophils 0 % (0-8) Platelet Estimate Adequate Platelet Morphology Normal Hypochromasia 1+ Sodium Level 140 MMOL/L (136-145) Potassium Level 5.0 MMOL/L (3.5-5.1) Chloride Level 104 MMOL/L (98-107) Carbon Dioxide Level 25 MMOL/L (21-32) Anion Gap 11 mmol/L (5-15) Blood Urea Nitrogen 29 mg/dL (7-18) H Creatinine 1.8 MG/DL (0.55-1.30) H Estimat Glomerular Filtration Rate 45.2 mL/min (>60) Glucose Level 142 MG/DL (74-106) H Calcium Level 8.8 MG/DL (8.5-10.1) Phosphorus Level 3.7 MG/DL (2.5-4.9) Magnesium Level 2.1 MG/DL (1.8-2.4) Total Bilirubin 0.3 MG/DL (0.2-1.0) Aspartate Amino Transf (AST/SGOT) 62 U/L (15-37) H Alanine Aminotransferase (ALT/SGPT) 94 U/L (12-78) H Alkaline Phosphatase 80 U/L (46-116) Total Protein 7.6 G/DL (6.4-8.2) Albumin 3.7 G/DL (3.4-5.0) Globulin 3.9 g/dL Albumin/Globulin Ratio 0.9 (1.0-2.7) L Height (Feet): 5 Height (Inches): 8.00 Weight (Pounds): 128 Medications Current Medications Medications (Trade) Dose Ordered Sig/Tyron Route PRN Reason Start Time Stop Time Status Last Admin Dose Admin Acetaminophen (Tylenol) 650 mg Q6H PRN ORAL Temp >100.5 05/07/20 06:45 06/06/20 06:44 Albuterol/ Ipratropium (Albuterol/ Ipratropium) 3 ml Q4HRT HHN 05/07/20 07:00 05/12/20 06:59 Amlodipine Besylate (Norvasc) 5 mg BID ORAL 05/08/20 09:00 06/07/20 08:59 05/08/20 17:53 Azithromycin 500 mg/Sodium Chloride 275 ml @ 275 mls/hr DAILY IV 05/08/20 09:00 05/13/20 08:59 05/08/20 09:13 Ceftriaxone Sodium 1 gm/ Dextrose 50 ml @ 100 mls/hr Q24H IVPB 05/07/20 23:00 05/14/20 22:59 05/08/20 00:22 Clonidine HCl (Catapres Tab) 0.1 mg EVERY 8 HOURS ORAL 05/08/20 22:00 08/06/20 21:59 Guaifenesin/ Dextromethorphan (Robitussin DM Syrup) 10 ml Q6H PRN ORAL For Cough 05/07/20 18:30 08/05/20 18:29 05/07/20 21:13 Heparin Sodium (Porcine) (Heparin 5000 units/ml) 5,000 units EVERY 12 HOURS SUBQ 05/07/20 21:00 06/21/20 20:59 05/08/20 20:03 Hydralazine HCl (Apresoline) 10 mg Q4H PRN IV SBP > 150mmHg 05/07/20 06:45 08/05/20 06:44 05/08/20 01:31 Hydralazine HCl (Apresoline) 100 mg Q8HR ORAL 05/08/20 06:00 08/06/20 05:59 05/08/20 14:45 Methylprednisolone Sodium Succinate (Solu-MEDROL) 60 mg EVERY 12 HOURS IVP 05/07/20 09:00 08/05/20 08:59 05/08/20 20:03 Ondansetron HCl (Zofran) 4 mg Q4H PRN IVP Nausea & Vomiting 05/07/20 06:45 06/06/20 06:44 Assessment/Plan Assessment/Plan: Assessment/Plan Diagnosis [place] I: #Hypoxemic resp failure #COPD exacerbation #r/o COVID #GAUDENCIO #HTN #Lung CA Plan -pulmonary toilet -Steroids -Empiric Abx -Echocardiogram -Continue blood pressure medications -monitor on telemetry -stress test when stable Ramu Barnes MD May 08, 2020 20:33
--- NOTE | 2020-05-08 20:45 | Consultation ---
DATE OF CONSULTATION: 05/07/2020 INFECTIOUS DISEASES CONSULTATION CONSULTING PHYSICIAN: Sherri Murphy MD. ATTENDING PHYSICIAN: Hermann Doll MD. REFERRING PHYSICIAN: Hermann Doll MD. REASON FOR CONSULTATION: Possible COVID-19 virus infection, community-acquired pneumonia versus infectious bronchitis. CHIEF COMPLAINT: The patient's chief complaint coming into the hospital is shortness of breath and dyspnea on exertion. HISTORY OF PRESENT ILLNESS: This is a very pleasant 74-year-old male who has history of multiple medical problems including history of lung cancer. The patient presented to [facility] with dyspnea on exertion and COPD exacerbation. There was concern for COVID-19 infection. He is currently in isolation when I saw him. COVID testing was pending. Because of the likely respiratory infection, I started the patient on azithromycin and Rocephin. The patient did have cough and congestion. Infectious diseases consultation requested for antibiotic management. Chest x-ray showed no obvious pneumonia but follow up chest x-ray was ordered. The patient is in COVID isolation, pending results of COVID testing. REVIEW OF SYSTEMS: The patient has generalized fatigue. No focal weakness. Currently no fever, chills, night sweats. HEAD AND NECK: No head pain, neck pain, neck stiffness. CARDIAC: No chest pain or palpitations. GASTROINTESTINAL: No nausea, vomiting, diarrhea. GENITOURINARY: No Perez. PULMONARY: Mild cough and congestion. No hemoptysis or secretions SKIN: No rash. NEUROLOGIC: No seizures, generalized fatigue, no focal weakness. No urinary symptoms per se. PAST MEDICAL HISTORY: The patient's past medical history includes the following. The patient has a past medical history of COPD, lung cancer, hypertension, chronic kidney disease, shortness of breath. ALLERGIES: No known drug allergies. No antibiotic allergies. SOCIAL HISTORY: Negative for smoking, alcohol, or drug abuse. FAMILY HISTORY: Noncontributory. Negative for tuberculosis or cancer. MEDICATIONS: Upon reviewing the MAR, he is on following medications. I put him on Rocephin, azithromycin, hydralazine, heparin, cough syrup, methylprednisolone, hydralazine, acetaminophen, Zofran. Outside medications noted and reconciliated. PHYSICAL EXAMINATION: VITAL SIGNS: Temperature 97.4, pulse rate 106, respiratory rate 20, blood pressure 195/95, saturation 99% on 3 liters. GENERAL: Alert and responsive, no acte distress, weak. HEAD AND NECK: Oral exam, no thrush. Eye exam, no icterus. Normocephalic. Neck is supple. No JVD. HEART: Regular. No gallop or murmur. ABDOMEN: Soft. Positive bowel sounds. Nontender. LUNGS: Few bilaterally rhonchi. No definite rales. SKIN: No rash. MUSCULOSKELETAL: No effusion. Legs are without cellulitis. PERIPHERAL VASCULAR: No cyanosis or gangrene. GENITOURINARY: No Perez. LINE SITES: Without phlebitis NEUROLOGIC: Intact and nonfocal. Alert and oriented. LABORATORY AND DIAGNOSTIC DATA: White count 10.5, hemoglobin 11.9. Creatinine 1.9. UA zero white cells. COVID testing pending. Nasopharyngeal PCR pending. Blood cultures negative to date. Imaging studies, initial chest x-ray showed no acute process noted and reviewed. ASSESSMENT/PLAN: 1. The patient had mild cough and congestion, rule out COVID-19 virus infection, rule out community-acquired pneumonia. The patient likely has upper respiratory infection and bronchitis with COPD exacerbation. At this time because of his risk for community-acquired pneumonia, we will place the patient on Rocephin and azithromycin for atypical and Streptococcus pneumonia coverage. Continue Rocephin and azithromycin. Follow up chest x-ray. Check laboratories. Await COVID testing. Continue COVID isolation for now. Monitor the patient's respiratory status. 2. COPD exacerbation. The patient on methylprednisolone. 3. Lung cancer history, I believe he has history of chemo. 4. Hypertension. 5. Chronic kidney disease. 6. No known drug allergies. 7. Social history is negative. 8. Family history is noncontributory. 9. MAR was noted. 10. Case discussed with RN. 11. Continue treatment with primary consultants. Sherri Murphy M.D. DR: Arnel JOB#: [id number] CC:
[2020-05-09] VITALS: BP 149/81
[2020-05-09] MEDS: Albuterol/Ipratropium 3ml neb HHN SCH (02:30)
[2020-05-09 04:00] VITALS: BP 141/77
[2020-05-09] MEDS: HydrALAZINE 50mg tab ORAL SCH (05:18)
[2020-05-09 05:30] LABS: HEMOGLOBIN 11.1 G/DL (14.2-18.0); MEAN CORPUSCULAR VOLUME 91 FL (80-99); PLATELET COUNT 214 K/UL (150-450); RED BLOOD COUNT 4.07 M/UL (4.70-6.10); WHITE BLOOD COUNT 8.5 K/UL (4.8-10.8)
[2020-05-09 05:52] LABS: ALANINE AMINOTRANSFERASE 70 U/L (12-78); ALBUMIN 3.3 G/DL (3.4-5.0); ALKALINE PHOSPHATASE 66 U/L (46-116); ANION GAP 10 mmol/L (5-15); ASPARTATE AMINO TRANSFERASE 33 U/L (15-37); BILIRUBIN,TOTAL 0.3 MG/DL (0.2-1.0); BLOOD UREA NITROGEN 39 mg/dL (7-18); CALCIUM 8.5 MG/DL (8.5-10.1); CARBON DIOXIDE 25 MMOL/L (21-32); CHLORIDE 107 MMOL/L (98-107); CREATININE 2.1 MG/DL (0.55-1.30); PHOSPHORUS 3.8 MG/DL (2.5-4.9); POTASSIUM 5.1 MMOL/L (3.5-5.1); SODIUM 142 MMOL/L (136-145)
[2020-05-09] MEDS ORDERED: guaiFENesin /DM 10ml syrup ORAL PRN (06:30)
[2020-05-09] MEDS ORDERED: Albuterol/Ipratropium 3ml neb HHN SCH (07:00)
[2020-05-09 08:00] VITALS: BP 127/67
[2020-05-09] MEDS ORDERED: Heparin 5000 units/ml inj SUBQ SCH (09:00)
[2020-05-09] MEDS ORDERED: Solu-MEDROL 125mg Inj IVP SCH (09:00)
[2020-05-09] MEDS ORDERED: Azithromycin 500 MG in NS 275 ML IV SCH (09:00)
--- NOTE | 2020-05-09 10:10 | General Progress Note ---
Assessment/Plan Assessment/Plan: #Hypoxemic resp failure #COPD exacerbation #r/o COVID #GAUDENCIO #HTN #Lung CA - admit inpatient - echo - pulm eval - breathing tx - monitor renal function - abx per ID - BP control - add amlodipine 5mg BID -add hydralazine 100mg BID - add clonidine 0.1mg TID - resume home meds - avoid nephrotoxins - monitor BMP, mag and phos daily Time spent 70 mi, greater than 50% on care coordination and counseling Subjective Allergies: Coded Allergies: No Known Allergies (Unverified , 01/01/20) Subjective Cr stable breathing improving on NC BP uptrending will add clonidine Objective Last 24 Hour Vital Signs Date Time Temp Pulse Resp B/P (MAP) Pulse Ox O2 Delivery O2 Flow Rate FiO2 05/09/20 09:06 87 127/67 05/09/20 08:20 83 18 98 Room Air 85 18 93 05/09/20 08:00 98.2 87 18 127/67 (87) 97 05/09/20 08:00 93 Room Air 05/09/20 07:43 79 05/09/20 05:18 147/81 05/09/20 05:18 147/81 05/09/20 04:00 3.0 05/09/20 04:00 98.4 83 19 141/77 (98) 99 05/09/20 04:00 Nasal Cannula 3.0 05/09/20 03:27 81 05/09/20 00:00 98.4 87 19 149/81 (103) 99 05/09/20 00:00 3.0 05/09/20 00:00 Nasal Cannula 3.0 05/08/20 23:35 81 05/08/20 22:30 83 152/74 (100) 05/08/20 21:16 177/81 05/08/20 21:16 177/81 05/08/20 20:00 98.2 73 16 177/81 (113) 98 05/08/20 20:00 98.2 73 16 177/81 (113) 98 05/08/20 20:00 3.0 05/08/20 20:00 93 05/08/20 20:00 3.0 05/08/20 20:00 Nasal Cannula 3.0 05/08/20 20:00 Nasal Cannula 3.0 05/08/20 19:24 97 Nasal Cannula 3.0 32 05/08/20 17:53 105 175/82 05/08/20 16:00 97.5 98 18 174/73 (106) 100 05/08/20 16:00 3.0 05/08/20 16:00 Nasal Cannula 3.0 05/08/20 15:16 101 05/08/20 14:45 180/93 05/08/20 12:00 3.0 05/08/20 12:00 98.0 92 18 168/82 (110) 100 05/08/20 12:00 Nasal Cannula 3.0 05/08/20 11:32 90 Intake and Output 05/08/20 05/09/20 19:00 07:00 Intake Total 875 ml 50 ml Output Total 400 ml 525 ml Balance 475 ml -475 ml Intake Oral 600 ml IV Total 275 ml 50 ml Output Urine Total 400 ml 525 ml # Bowel Movements 2 Laboratory Tests 05/09/20 03:30: White Blood Count 8.5, Red Blood Count 4.07L, Hemoglobin 11.1L, Hematocrit 37.0L , Mean Corpuscular Volume 91, Mean Corpuscular Hemoglobin 27.3, Mean Corpuscular Hemoglobin Concent 30.1L, Red Cell Distribution Width 13.0, Platelet Count 214, Mean Platelet Volume 6.4L, Neutrophils (%) (Auto) , Lymphocytes (%) (Auto) , Monocytes (%) (Auto) , Eosinophils (%) (Auto) , Basophils (%) (Auto) , Differential Total Cells Counted 100, Neutrophils % ( Manual) 84H, Lymphocytes % (Manual) 13L, Monocytes % (Manual) 1, Eosinophils % ( Manual) 1, Basophils % (Manual) 0, Band Neutrophils 1, Platelet Estimate Adequate, Platelet Morphology Normal, Hypochromasia 1+, Anisocytosis 1+, Sodium Level 142, Potassium Level 5.1, Chloride Level 107, Carbon Dioxide Level 25, Anion Gap 10, Blood Urea Nitrogen 39H, Creatinine 2.1H, Estimat Glomerular Filtration Rate 37.8, Glucose Level 140H, Calcium Level 8.5, Phosphorus Level 3.8, Magnesium Level 2.0, Total Bilirubin 0.3, Aspartate Amino Transf (AST/SGOT ) 33, Alanine Aminotransferase (ALT/SGPT) 70, Alkaline Phosphatase 66, Total Protein 6.6, Albumin 3.3L, Globulin 3.3, Albumin/Globulin Ratio 1.0 Height (Feet): 5 Height (Inches): 8.00 Weight (Pounds): 128 Hermann Doll M.D. May 09, 2020 10:10
--- NOTE | 2020-05-09 10:58 | Pulmonology Progress Note ---
Subjective ROS Limited/Unobtainable: No Interval Events: None new Constitutional: Reports: no symptoms HEENT: Repors: no symptoms Respiratory: Reports: no symptoms Cardiovascular: Reports: no symptoms Gastrointestinal/Abdominal: Reports: no symptoms Allergies: Coded Allergies: No Known Allergies (Unverified , 01/01/20) Objective Last 24 Hour Vital Signs Date Time Temp Pulse Resp B/P (MAP) Pulse Ox O2 Delivery O2 Flow Rate FiO2 05/09/20 09:06 87 127/67 05/09/20 08:20 83 18 98 Room Air 85 18 93 05/09/20 08:00 3.0 05/09/20 08:00 Nasal Cannula 3.0 05/09/20 08:00 98.2 87 18 127/67 (87) 97 05/09/20 08:00 93 Room Air 05/09/20 07:43 79 05/09/20 05:18 147/81 05/09/20 05:18 147/81 05/09/20 04:00 3.0 05/09/20 04:00 98.4 83 19 141/77 (98) 99 05/09/20 04:00 Nasal Cannula 3.0 05/09/20 03:27 81 05/09/20 00:00 98.4 87 19 149/81 (103) 99 05/09/20 00:00 3.0 05/09/20 00:00 Nasal Cannula 3.0 05/08/20 23:35 81 05/08/20 22:30 83 152/74 (100) 05/08/20 21:16 177/81 05/08/20 21:16 177/81 05/08/20 20:00 98.2 73 16 177/81 (113) 98 05/08/20 20:00 98.2 73 16 177/81 (113) 98 05/08/20 20:00 3.0 05/08/20 20:00 93 05/08/20 20:00 3.0 05/08/20 20:00 Nasal Cannula 3.0 05/08/20 20:00 Nasal Cannula 3.0 05/08/20 19:24 97 Nasal Cannula 3.0 32 05/08/20 17:53 105 175/82 05/08/20 16:00 97.5 98 18 174/73 (106) 100 7/8/20 16:00 3.0 05/08/20 16:00 Nasal Cannula 3.0 05/08/20 15:16 101 05/08/20 14:45 180/93 05/08/20 12:00 3.0 05/08/20 12:00 98.0 92 18 168/82 (110) 100 05/08/20 12:00 Nasal Cannula 3.0 05/08/20 11:32 90 Intake and Output 05/08/20 05/09/20 19:00 07:00 Intake Total 875 ml 50 ml Output Total 400 ml 525 ml Balance 475 ml -475 ml Intake Oral 600 ml IV Total 275 ml 50 ml Output Urine Total 400 ml 525 ml # Bowel Movements 2 General Appearance: no acute distress HEENT: normocephalic Respiratory: chest wall non-tender, lungs clear Cardiovascular: normal peripheral pulses, regular rhythm Microbiology Date/Time Source Procedure Growth Status 05/07/20 03:20 Blood Blood Culture - Preliminary NO GROWTH AFTER 48 HOURS Resulted 05/07/20 03:05 Blood Blood Culture - Preliminary NO GROWTH AFTER 48 HOURS Resulted 05/07/20 03:20 Nasal Nares MRSA Culture - Final NO METHICILLIN RESISTANT STAPH AUREUS... Complete 05/07/20 03:20 Nasopharynx Coronavirus COVID-19 PCR ([facility]) - Final Complete 05/07/20 03:20 Rectum VRE Culture - Final NO VANCOMYCIN RESISTANT ENTEROCOCCUS ... Complete 05/07/20 03:20 Rectum - Final NO CARBAPENEM-RESISTANT ENTEROBACTERI... Complete Laboratory Tests 05/09/20 03:30: White Blood Count 8.5, Red Blood Count 4.07L, Hemoglobin 11.1L, Hematocrit 37.0L , Mean Corpuscular Volume 91, Mean Corpuscular Hemoglobin 27.3, Mean Corpuscular Hemoglobin Concent 30.1L, Red Cell Distribution Width 13.0, Platelet Count 214, Mean Platelet Volume 6.4L, Neutrophils (%) (Auto) , Lymphocytes (%) (Auto) , Monocytes (%) (Auto) , Eosinophils (%) (Auto) , Basophils (%) (Auto) , Differential Total Cells Counted 100, Neutrophils % ( Manual) 84H, Lymphocytes % (Manual) 13L, Monocytes % (Manual) 1, Eosinophils % ( Manual) 1, Basophils % (Manual) 0, Band Neutrophils 1, Platelet Estimate Adequate, Platelet Morphology Normal, Hypochromasia 1+, Anisocytosis 1+, Sodium Level 142, Potassium Level 5.1, Chloride Level 107, Carbon Dioxide Level 25, Anion Gap 10, Blood Urea Nitrogen 39H, Creatinine 2.1H, Estimat Glomerular Filtration Rate 37.8, Glucose Level 140H, Calcium Level 8.5, Phosphorus Level 3.8, Magnesium Level 2.0, Total Bilirubin 0.3, Aspartate Amino Transf (AST/SGOT ) 33, Alanine Aminotransferase (ALT/SGPT) 70, Alkaline Phosphatase 66, Total Protein 6.6, Albumin 3.3L, Globulin 3.3, Albumin/Globulin Ratio 1.0 Current Medications Medications (Trade) Dose Ordered Sig/Tyron Route PRN Reason Start Time Stop Time Status Last Admin Dose Admin Acetaminophen (Tylenol) 650 mg Q6H PRN ORAL Temp >100.5 05/09/20 06:45 06/06/20 06:44 Albuterol/ Ipratropium (Albuterol/ Ipratropium) 3 ml Q4HRT HHN 05/09/20 07:00 05/12/20 06:59 05/09/20 08:10 Amlodipine Besylate (Norvasc) 5 mg BID@0900,2100 ORAL 05/09/20 09:00 06/08/20 08:59 05/09/20 09:06 Azithromycin 500 mg/Sodium Chloride 275 ml @ 275 mls/hr DAILY IV 05/09/20 09:00 05/13/20 08:59 05/09/20 09:07 Ceftriaxone Sodium 1 gm/ Dextrose 50 ml @ 100 mls/hr Q24H IVPB 05/09/20 23:00 05/14/20 22:59 Clonidine HCl (Catapres Tab) 0.1 mg EVERY 8 HOURS ORAL 05/09/20 14:00 08/06/20 21:59 Guaifenesin/ Dextromethorphan (Robitussin DM Syrup) 10 ml Q6H PRN ORAL For Cough 05/09/20 06:30 08/05/20 18:29 Heparin Sodium (Porcine) (Heparin 5000 units/ml) 5,000 units EVERY 12 HOURS SUBQ 05/09/20 09:00 06/21/20 20:59 05/09/20 09:07 Hydralazine HCl (Apresoline) 10 mg Q4H PRN IV SBP > 150mmHg 05/09/20 06:45 08/05/20 06:44 Hydralazine HCl (Apresoline) 100 mg Q8HR ORAL 05/09/20 14:00 08/06/20 05:59 Methylprednisolone Sodium Succinate (Solu-MEDROL) 60 mg EVERY 12 HOURS IVP 05/09/20 09:00 08/05/20 08:59 05/09/20 09:06 Ondansetron HCl (Zofran) 4 mg Q4H PRN IVP Nausea & Vomiting 05/09/20 06:45 06/06/20 06:44 Assessment/Plan Assessment/Plan IMPRESSION: 1. History of lung cancer, on chemotherapy. 2. Chronic obstructive pulmonary disease with exacerbation. DISCUSSION: Negative for COVID-19. Continue oxygen and pulmonary hygiene. The patient is on steroids and oxygen as well as empiric antibiotics. I will follow. Jimmie aHrtman Omar Syed MD May 09, 2020 10:58
[2020-05-09 11:56] VITALS: BP 147/68
[2020-05-09] MEDS ORDERED: HydrALAZINE 50mg tab ORAL SCH (14:00)
[2020-05-09] MEDS ORDERED: cefTRIAXone 1 GM in D5W 50 ML IVPB SCH (23:00)
--- NOTE | 2020-05-13 13:36 | Discharge Summary ---
Discharge Summary Discharge Summary _ DATE OF ADMISSION: 05/07/2020 DATE OF DISCHARGE: 05/09/2020 DISCHARGED BY: Dr. Doll REASON FOR ADMISSION: 74 years old male with a past medical history of lung cancer of unknown staging , currently on chemotherapy, COPD, presented with respiratory distress and hypoxia. Symptoms started about 6 hours prior to arrival to ED. According to paramedics, patient was in tripod position and was in respiratory distress. Pulse oximetry was 80% on the room air. Patient received supplemental oxygen and dose of epinephrine , and somewhat improved . Upon evaluation patient was wheezing ,was tachycardic, tachypneic ,blood pressure was elevated 172/71, patient at that time was on 100% nonrebreathing mask. Laboratory work-up revealed no leukocytosis ,hemoglobin 11.9 ,hematocrit 30.9. BUN 24, creatinine 1.9. Troponin negative. Urinalysis revealed +2 protein, no evidence of urinary tract infection. Chest x-ray demonstrated no acute cardiopulmonary pathology. Patient also undergone venous duplex of bilateral lower extremity , which revealed no evidence of acute DVT. Patient was swabbed for COVID-19 and admitted for further management to telemetry floor. CONSULTANTS: pulmonary Dr. Leung ID specialist Dr. Murphy [facility] COURSE: Patient admitted to telemetry floor. Supplemental oxygen provided and titrated to keep oximetry above 92 %. Pulmonary toilet provided. Patient started on IV steroids and empiric antibiotics. Antitussive provided as needed. DVT prophylaxis provided Patient initially was on isolation. COVID-19 by PCR from 05/07 was negative. Blood cultures were negative. Follow-up chest x-ray was unchanged, and revealed clear lungs and pleural spaces. Blood pressure was managed with hydralazine , clonidine and calcium channel ellis. Blood pressure stabilized. Echocardiogram revealed preserved ejection fraction of 60 to 65% with no evidence of wall motion abnormality. Mild left ventricular hypertrophy.. Renal parameters and electrolytes were closely monitored, electrolytes corrected as needed. Nephrotoxic's were avoided. Patient was able to be weaned from nonrebreather mask to Venturi mask and subsequently to oxygen via nasal cannula. Patient clinically stabilized and was ready for discharge home . FINAL DIAGNOSES: COPD exacerbation Acute hypoxemic respiratory failure History of lung cancer, chemotherapy Acute kidney injury Hypertension Suspected COVID-19- ruled out DISCHARGE MEDICATIONS: See Medication Reconciliation list. DISCHARGE INSTRUCTIONS: Patient was discharged home. Follow-up with her primary care provider in 1 week. I have been assigned to dictate discharge summary for this account. I was not involved in the patient's management. Lisa Alonzo NP May 13, 2020 13:36
== END 2020-05-09 12:12 | disposition home or self-care (01) | DRG 189 ==
LOC: EDBD 03:08 → EMR 03:19 → 2W 03:40 → EDBEDREQ 04:06 → 2E 05-09 05:52
DX: J96.01 Acute respiratory failure with hypoxia (principal); J44.1 Chronic obstructive pulmonary disease with (acute) exacerbation; C34.90 Malignant neoplasm of unspecified part of unspecified bronchus or lung; N17.9 Acute kidney failure, unspecified; I12.9 Hypertensive chronic kidney disease with stage 1 through stage 4 chronic kidney disease, or unspecified chronic kidney disease; N18.9 Chronic kidney disease, unspecified; Z79.899 Other long term (current) drug therapy
CPT/HCPCS: 36415; 71045; 80053; 81003; 83605; 83735; 84100; 84484; 85007; 85025; 87040; 87081; 93005; 93306; 93970; 94640; 96365; 96367; 96368; 96375; 99291; J7030; J7620